=== PATIENT | female | born 1950 | race Caucasian/White ===

== ENCOUNTER → 2017-02-12 | Outpatient (CLI) | payer MEDICARE, OTHER ==
--- NOTE | 2017-02-12 12:56 | RADIOLOGY REPORT (SQ) ---
EXAM DESCRIPTION: MRI LT UPPER JOINT WITHOUT COMPLETED DATE/TIME: 02/12/2017 12:12 pm REASON FOR STUDY: STRAIN OF MUSCLE(S)/TENDON(S) OF THE ROTATOR CUFF OF LEFT SHOULDER (S46.012 S46.01 2D STRAIN OF MUSC/TEND THE ROTATOR CUFF OF LEFT SHOULD COMPARISON: None. TECHNIQUE: Left shoulder images acquired and stored on PACS. Multiplanar imaging to include fat sens itive sequences such as T1, water sensitive sequences such as FST2/STIR, cartilage sensitive sequence s such as FSPD/gradient-echo sequences. LIMITATIONS: None. FINDINGS: BONE MARROW AND CORTEX: No worrisome bone lesions or marrow replacement. No occult fractur es. JOINT OR BURSAL EFFUSION: Glenohumeral joint effusion. No significant bursal fluid. GLENO-HUMERAL ARTICULATION: Intact. Central cartilage loss. ACROMION AND AC JOINT: Type 2. Moderate AC joint arthropathy. ROTATOR CUFF AND INTERVAL: Cuff musculature is symmetric. Increased signal articular surface suprasp inatus tendon, partial thickness. No rotator interval tear. No rotator interval thickening to suggest adhesive capsulitis. LABRUM AND BICEPS LABRAL COMPLEX: No labral tear identified. Distal biceps in normal position. REMAINDER OF LABRUM AND IGHL : No gross tear or paralabral cyst formation. Labral evaluation is less than optimal without joint distention. No thickening of IGHL to suggest adhesive capsulitis. PERIARTICULAR AND ADJACENT SOFT TISSUES: No masses or abnormal nodes. OTHER: No other significant finding. IMPRESSION: 1. Partial thickness articular surface tear of the supraspinatus. 2. AC joint arthropathy. 3. Glenohumeral joint effusion. TECHNICAL DOCUMENTATION: JOB ID: [id number] [employer]- All Rights Reserved
== END ==
LOC: RAD 11:14
PROVIDERS: ATTEND Family Medicine
DX: S46.012D Strain of muscle(s) and tendon(s) of the rotator cuff of left shoulder, subsequent encounter (principal); X58.XXXD Exposure to other specified factors, subsequent encounter

== ENCOUNTER → 2017-05-31 | Outpatient (CLI) | payer MEDICARE, OTHER ==
--- NOTE | 2017-06-02 17:56 | WOMENS IMAGING REPORT ---
EXAM DESCRIPTION: 3D SCREENING MAMMO BILAT COMPLETED DATE/TIME: 05/31/2017 9:33 am REASON FOR STUDY: SCREENING MAMMO Z12.31 ENCNTR SCREEN MAMMOGRAM FOR MALIGNANT NEOPLASM OF ELLIOT COMPARISON: 03/29/2015 outside films TECHNIQUE: Standard craniocaudal and mediolateral oblique views of each breast recorded using digita l acquisition and breast tomosynthesis. LIMITATIONS: None. FINDINGS: Findings present which are benign by mammographic criteria. No suspicious masses, calcifi cations or architectural distortion. Pertinent benign findings: Patient has had multiple bilateral breast surgeries including bilateral br east reduction and bilateral open breast biopsies. There are diffuse bilateral postsurgical changes. Right-sided nipple retraction. These findings are stable. Nodular appearance to the left retroare olar breast tissue is stable. Read with the assistance of CAD. .[facility] - R2 Cenova Version 1.3 .[facility] Imaging - R2 Cenova Version 1.3 .[facility] Imaging - R2 Cenova Version 2.4 .[facility] [place] - R2 Cenova Version 2.4 .[facility] - R2 Relocation Specialist Version 9.2 Benign mammographic findings may include one or more of the following: Smooth masses, popcorn/rim/co arse calcifications, asymmetries, post-procedure changes, and lesions with long-standing stability. IMPRESSION: BENIGN MAMMOGRAPHIC FINDINGS. BIRADS 2 BREAST DENSITY: b. There are scattered areas of fibroglandular density. BIRAD: 2 BENIGN FINDING(S) RECOMMENDATION: RECOMMENDATION: ROUTINE SCREENING Please continue yearly bilateral screening tomosynthesis in May 2018 COMMENT: The patient has been notified of the results by letter per SA requirements. Additional no tification policies are in place for contacting patient with suspicious or incomplete findings. Quality ID #[id number]: The [employer] recommends an annual screening mammogram for women aged 40 years or over. This facility utilizes a reminder system to ensure that all patients receive reminder letters, and/or direct phone calls for appointments. This includes reminders for routine scr eening mammograms, diagnostic mammograms, or other Breast Imaging Interventions when appropriate. Th is patient will be placed in the appropriate reminder system. The [employer] (ACR) has developed recommendations for screening MRI of the breast s in certain patient populations, to be used in conjunction with mammography. Breast MRI surveillanc e may be appropriate for women with more than 20% lifetime risk of developing breast cancer as deter mined by genetic testing, significant family history of the disease, or history of mantle radiation f or Hodgkins Disease. ACR Practice Guidelines 2008. DBT Technology DBT is a type of tomographic mammography. With conventional mammography, overlapping breast tissue ma y make lesions difficult to detect, even with good compression. DBT uses an x-ray tube that rotates a round the breast, taking images at different angles. These images are then combined to create thin sl ices of the breast that the radiologist can view as a 3D reconstruction. The Valderm unit can perform full-field digital mammograms (2D imaging); or DBT (3D imaging); or both, in a combination mode that quickly performs both the mammogram and the tomosynthesis scan while the breast is still compressed. PQRS 6045F: Fluoroscopic imaging is not utilized for breast tomosynthesis. TECHNICAL DOCUMENTATION: FINDING NUMBER: (1) ASSESSMENT: (1) JOB ID: [id number] [employer]- All Rights Reserved Reading location - IP/workstation name: [email or web address]
== END ==
LOC: WI 07:29
PROVIDERS: ATTEND Internal Medicine
DX: Z12.31 Encounter for screening mammogram for malignant neoplasm of breast (principal)
CPT/HCPCS: 77063; 77067

== ENCOUNTER 2017-06-15 08:07 | Outpatient (CLI) | payer MEDICARE, OTHER ==
[2017-06-15 08:52] VITALS: BP 124/52
[2017-06-15] MEDS: NORMAL SALINE 250 ML IV PRN ×2 (09:09→09:42)
[2017-06-15 09:21] LABS: ALANINE AMINOTRANSFERASE 32 U/L (9-52); ALBUMIN 4.1 g/dL (3.5-5.0); ALKALINE PHOSPHATASE 77 U/L (38-126); ANION GAP 10 (5-19); ASPARTATE AMINO TRANSFERASE 34 U/L (14-36); BILIRUBIN,DIRECT 0.3 mg/dL (0.0-0.4); BILIRUBIN,TOTAL 0.5 mg/dL (0.2-1.3); BLOOD UREA NITROGEN 18 mg/dL (7-20); CALCIUM 9.1 mg/dL (8.4-10.2); CARBON DIOXIDE 27 mmol/L (22-30); CHLORIDE 104 mmol/L (98-107); GLUCOSE 119 mg/dL (75-110); POTASSIUM 3.2 mmol/L (3.6-5.0); SODIUM 140.6 mmol/L (137-145); TOTAL PROTEIN 6.9 g/dL (6.3-8.2)
[2017-06-15] MEDS: POTASSIUM CHLORIDE 20 MEQ/50 ML RTU IV SCH ×4 (09:44→16:24)
[2017-06-15] MEDS ORDERED: DIPHENHYDRAMINE HCL 25 MG in NORMAL SALINE 50 ML IV PRN (10:29)
[2017-06-15] MEDS ORDERED: MAGNESIUM SULFATE 1 GM/D5W 100 ML IV SCH (10:30)
[2017-06-15] MEDS: MAGNESIUM SULFATE 1 GM/D5W 100 ML IV SCH ×2 (18:48→19:50)
== END 2017-06-15 20:09 | disposition home or self-care (01) ==
LOC: II 08:07 → 5TH 08:18 → II 20:09
PROVIDERS: ATTEND Internal Medicine
PROC: 3E043GC Introduction of Other Therapeutic Substance into Central Vein, Percutaneous Approach (ICD-10-PCS; principal; 2017-06-15)
DX: E87.6 Hypokalemia (principal)
CPT/HCPCS: 36415; 83735; 80053; 96367; J1200; J3475; J3480; 96365; 96366; 96375

== ENCOUNTER 2017-06-18 08:49 | Outpatient (CLI) | payer MEDICARE, OTHER ==
[~2017-06-18 08:49] MED LIST: NORMAL SALINE 250 ML IV PRN
[2017-06-18] MEDS: POTASSIUM CHLORIDE 20 MEQ/50 ML RTU IV SCH ×8 (10:18→22:26)
[2017-06-18] MEDS ORDERED: DIPHENHYDRAMINE HCL 50 MG/ML VIAL IV PRN (14:46)
[2017-06-18] MEDS ORDERED: MAGNESIUM SULFATE 1 GM/D5W 100 ML IV SCH (16:00)
[2017-06-18] MEDS ORDERED: MAGNESIUM SULFATE/D5W 1 GM/100 ML RTUPB IV ONE (22:21)
[2017-06-18 22:28] VITALS: BP 120/53
[2017-06-18] MEDS ORDERED: MAGNESIUM SULFATE 1 GM/D5W 100 ML IV ONE (22:45)
== END 2017-06-19 | disposition home or self-care (01) ==
LOC: II 08:49 → 5 08:51 → II 06-19
PROVIDERS: ATTEND Internal Medicine
PROC: 3E043GC Introduction of Other Therapeutic Substance into Central Vein, Percutaneous Approach (ICD-10-PCS; principal; 2017-06-18)
DX: E87.6 Hypokalemia (principal)
CPT/HCPCS: 96367; J1200; J3475; J3480; J7050; J1642; 96365; 96366; 96375

== ENCOUNTER 2017-06-22 08:15 | Outpatient (CLI) | payer MEDICARE, OTHER ==
[2017-06-22 09:00] VITALS: BP 137/64
[2017-06-22 09:30] LABS: ALANINE AMINOTRANSFERASE 33 U/L (9-52); ALBUMIN 4.1 g/dL (3.5-5.0); ALKALINE PHOSPHATASE 79 U/L (38-126); ANION GAP 13 (5-19); ASPARTATE AMINO TRANSFERASE 29 U/L (14-36); BILIRUBIN,DIRECT 0.3 mg/dL (0.0-0.4); BILIRUBIN,TOTAL 0.4 mg/dL (0.2-1.3); BLOOD UREA NITROGEN 17 mg/dL (7-20); CALCIUM 9.5 mg/dL (8.4-10.2); CARBON DIOXIDE 27 mmol/L (22-30); CHLORIDE 102 mmol/L (98-107); GLUCOSE 115 mg/dL (75-110); POTASSIUM 3.4 mmol/L (3.6-5.0); TOTAL PROTEIN 6.7 g/dL (6.3-8.2)
[2017-06-22] MEDS ORDERED: DIPHENHYDRAMINE HCL 50 MG in NORMAL SALINE 50 ML IV PRN (09:34)
[2017-06-22] MEDS ORDERED: MAGNESIUM SULFATE/D5W 0 GM/0 ML RTUPB IV ONE (09:36)
[2017-06-22] MEDS: POTASSIUM CHLORIDE 20 MEQ/50 ML RTU IV PRN ×4 (09:41→15:29)
[2017-06-22] MEDS ORDERED: DIPHENHYDRAMINE HCL 25 MG in NORMAL SALINE 50 ML IV PRN (09:47)
[2017-06-22] MEDS ORDERED: MAGNESIUM SULFATE 1 GM/D5W 100 ML IV SCH (10:30)
== END 2017-06-22 20:00 | disposition home or self-care (01) ==
LOC: II 08:15 → 5TH 08:25 → II 20:00
PROVIDERS: ATTEND Internal Medicine
PROC: 3E043GC Introduction of Other Therapeutic Substance into Central Vein, Percutaneous Approach (ICD-10-PCS; principal; 2017-06-22)
DX: E87.6 Hypokalemia (principal); C20 Malignant neoplasm of rectum; K91.2 Postsurgical malabsorption, not elsewhere classified
CPT/HCPCS: 36415; 83735; 80053; 96367; J1200; J3475; J3480; 96365; 96366; 96375

== ENCOUNTER 2017-06-25 08:26 | Outpatient (CLI) | payer MEDICARE, OTHER ==
[2017-06-25] MEDS ORDERED: NORMAL SALINE 250 ML IV PRN (08:27)
[2017-06-25] MEDS ORDERED: NORMAL SALINE IV PRN ×2 (08:32→10:48)
[2017-06-25] MEDS ORDERED: POTASSIUM CHLORIDE IV PRN ×2 (08:32→10:48)
[2017-06-25] MEDS ORDERED: CYANOCOBALAMIN (VITAMIN B-12) INJ 1000 MCG/1 ML VIAL IM PRN (09:00)
[2017-06-25 11:19] LABS: GLUCOSE 139 mg/dL (75-110)
[2017-06-25 11:29] LABS: ALANINE AMINOTRANSFERASE 33 U/L (9-52); ALBUMIN 4.2 g/dL (3.5-5.0); ALKALINE PHOSPHATASE 82 U/L (38-126); ANION GAP 14 (5-19); ASPARTATE AMINO TRANSFERASE 31 U/L (14-36); BILIRUBIN,DIRECT 0.1 mg/dL (0.0-0.4); BILIRUBIN,TOTAL 0.3 mg/dL (0.2-1.3); BLOOD UREA NITROGEN 18 mg/dL (7-20); CALCIUM 9.4 mg/dL (8.4-10.2); CARBON DIOXIDE 24 mmol/L (22-30); CHLORIDE 104 mmol/L (98-107); POTASSIUM 3.5 mmol/L (3.6-5.0); SODIUM 141.6 mmol/L (137-145); TOTAL PROTEIN 6.5 g/dL (6.3-8.2)
[2017-06-25] MEDS ORDERED: DIPHENHYDRAMINE HCL 25 MG in NORMAL SALINE 50 ML IV PRN (12:04)
[2017-06-25] MEDS: MAGNESIUM SULFATE 1 GM/D5W 100 ML IV SCH ×2 (14:47→16:36)
[2017-06-25 16:04] VITALS: BP 115/54
== END 2017-06-25 20:46 | disposition home or self-care (01) ==
LOC: II 08:26 → 4S 08:32 → II 20:46
PROVIDERS: ATTEND Internal Medicine
PROC: 3E043GC Introduction of Other Therapeutic Substance into Central Vein, Percutaneous Approach (ICD-10-PCS; principal; 2017-06-25)
PROC: 3E0 Administration, Physiological Systems and Anatomical Regions, Introduction (ICD-10-PCS; 2017-06-25)
DX: E87.6 Hypokalemia (principal); C20 Malignant neoplasm of rectum
CPT/HCPCS: 36415; 83735; 80053; 96367; J3420; J1200; J3475; J3480; J7030; 96365; 96366

== ENCOUNTER 2017-06-29 08:52 | Outpatient (CLI) | payer MEDICARE, OTHER ==
[~2017-06-29 08:52] MED LIST changes: +NORMAL SALINE IV PRN; +POTASSIUM CHLORIDE IV PRN
[2017-06-29] MEDS: POTASSI CL 40 MEQ/NS 1L 1,000 ML IV PRN ×2 (09:26→11:44)
[2017-06-29] MEDS ORDERED: DIPHENHYDRAMINE HCL IV PRN (14:00)
[2017-06-29] MEDS ORDERED: NORMAL SALINE IV PRN (14:00)
[2017-06-29] MEDS: MAGNESIUM SULFATE 1 GM/D5W 100 ML IV SCH ×2 (14:53→16:05)
[2017-06-29 16:34] VITALS: BP 119/56
== END 2017-06-29 18:00 | disposition home or self-care (01) ==
LOC: II 08:52 → 5 08:59 → II 18:00
PROVIDERS: ATTEND Internal Medicine
PROC: 3E043GC Introduction of Other Therapeutic Substance into Central Vein, Percutaneous Approach (ICD-10-PCS; principal; 2017-06-29)
DX: E87.6 Hypokalemia (principal)
CPT/HCPCS: J1200; J3475; J3480; 96365; 96366; 96367; J7030

== ENCOUNTER 2017-07-02 09:13 | Outpatient (CLI) | payer MEDICARE, OTHER ==
[~2017-07-02 09:13] MED LIST changes: -NORMAL SALINE IV PRN; -POTASSIUM CHLORIDE IV PRN
[2017-07-02] MEDS ORDERED: DIPHENHYDRAMINE HCL 50 MG/ML VIAL IV PRN (10:10)
[2017-07-02] MEDS: POTASSI CL 40 MEQ/NS 1L 1,000 ML IV PRN ×2 (10:13→12:29)
[2017-07-02 11:36] VITALS: BP 123/69
[2017-07-02] MEDS: MAGNESIUM SULFATE 1 GM/D5W 100 ML IV PRN ×2 (16:07→17:35)
== END 2017-07-02 19:46 | disposition home or self-care (01) ==
LOC: II 09:13 → 5 09:19 → II 19:46
PROVIDERS: ATTEND Internal Medicine
PROC: 3E043GC Introduction of Other Therapeutic Substance into Central Vein, Percutaneous Approach (ICD-10-PCS; principal; 2017-07-02)
DX: E87.6 Hypokalemia (principal)
CPT/HCPCS: J1200; J3475; J3480; 96365; 96366; 96367

== ENCOUNTER 2017-07-06 12:11 | Outpatient (CLI) | payer MEDICARE, OTHER ==
[2017-07-06] MEDS ORDERED: NORMAL SALINE 250 ML IV PRN (12:59)
[2017-07-06] MEDS: POTASSI CL 40 MEQ/NS 1L 1,000 ML IV PRN ×2 (13:21→16:18)
[2017-07-06] MEDS ORDERED: DIPHENHYDRAMINE HCL 25 MG in NORMAL SALINE 50 ML IV PRN (18:09)
[2017-07-06] MEDS: MAGNESIUM SULFATE 1 GM/D5W 100 ML IV SCH ×2 (19:32→20:40)
[2017-07-06 22:49] VITALS: BP 115/57
== END 2017-07-06 22:40 | disposition home or self-care (01) ==
LOC: II 12:11 → 4N 12:19 → II 22:40
PROVIDERS: ATTEND Internal Medicine
PROC: 3E033GC Introduction of Other Therapeutic Substance into Peripheral Vein, Percutaneous Approach (ICD-10-PCS; principal; 2017-07-06)
DX: E87.6 Hypokalemia (principal)
CPT/HCPCS: J1200; J3475; J3480; 96365; 96366; 96367

== ENCOUNTER 2017-07-09 09:23 | Outpatient (CLI) | payer MEDICARE, OTHER ==
[2017-07-09] MEDS ORDERED: DIPHENHYDRAMINE HCL 25 MG in NORMAL SALINE 50 ML INJ PRN (10:05)
[2017-07-09] MEDS: POTASSI CL 40 MEQ/NS 1L 1,000 ML IV SCH ×2 (10:27→12:34)
[2017-07-09] MEDS ORDERED: NORMAL SALINE 250 ML IV PRN (11:00)
[2017-07-09] MEDS: MAGNESIUM SULFATE 1 GM/D5W 100 ML IV SCH ×2 (15:46→16:51)
== END 2017-07-09 18:30 | disposition home or self-care (01) ==
LOC: II 09:23 → 3N 09:29 → II 18:30
PROVIDERS: ATTEND Internal Medicine
PROC: 3E043GC Introduction of Other Therapeutic Substance into Central Vein, Percutaneous Approach (ICD-10-PCS; principal; 2017-07-09)
DX: E87.6 Hypokalemia (principal)
CPT/HCPCS: J1200; J3475; J3480; 96365; 96366; 96367

== ENCOUNTER 2017-07-13 09:06 | Outpatient (CLI) | payer MEDICARE, OTHER ==
[2017-07-13] MEDS: POTASSI CL 40 MEQ/NS 1L 1,000 ML IV PRN ×2 (10:00→12:03)
[2017-07-13] MEDS ORDERED: DIPHENHYDRAMINE HCL 25 MG in NORMAL SALINE 50 ML IV PRN (11:41)
[2017-07-13 12:42] VITALS: BP 125/55
[2017-07-13] MEDS: MAGNESIUM SULFATE 1 GM/D5W 100 ML IV SCH ×2 (15:27→16:30)
== END 2017-07-13 17:36 | disposition home or self-care (01) ==
LOC: II 09:06 → 3N 09:46 → II 17:36
PROVIDERS: ATTEND Internal Medicine
PROC: 3E043GC Introduction of Other Therapeutic Substance into Central Vein, Percutaneous Approach (ICD-10-PCS; principal; 2017-07-13)
DX: E87.6 Hypokalemia (principal)
CPT/HCPCS: 96365; 96366; 96367; J1200; J3475; J3480

== ENCOUNTER 2017-07-16 08:56 | Outpatient (CLI) | payer MEDICARE, OTHER ==
[2017-07-16 11:09] LABS: ALANINE AMINOTRANSFERASE 30 U/L (9-52); ALBUMIN 4.1 g/dL (3.5-5.0); ALKALINE PHOSPHATASE 76 U/L (38-126); ANION GAP 13 (5-19); ASPARTATE AMINO TRANSFERASE 29 U/L (14-36); BILIRUBIN,DIRECT 0.3 mg/dL (0.0-0.4); BILIRUBIN,TOTAL 0.3 mg/dL (0.2-1.3); BLOOD UREA NITROGEN 20 mg/dL (7-20); CALCIUM 9.4 mg/dL (8.4-10.2); CARBON DIOXIDE 26 mmol/L (22-30); CHLORIDE 104 mmol/L (98-107); GLUCOSE 138 mg/dL (75-110); POTASSIUM 3.6 mmol/L (3.6-5.0); SODIUM 142.8 mmol/L (137-145); TOTAL PROTEIN 6.7 g/dL (6.3-8.2)
[2017-07-16] MEDS: POTASSI CL 40 MEQ/NS 1L 1,000 ML IV PRN ×2 (11:38→14:18)
[2017-07-16] MEDS: NORMAL SALINE 250 ML IV PRN ×5 (11:48→16:30)
[2017-07-16] MEDS ORDERED: DIPHENHYDRAMINE HCL 25 MG in NORMAL SALINE 50 ML IV ONE (15:00)
[2017-07-16] MEDS: MAGNESIUM SULFATE 1 GM/D5W 100 ML IV SCH ×2 (16:49→17:57)
[2017-07-16 19:41] VITALS: BP 123/58
== END 2017-07-16 20:00 | disposition home or self-care (01) ==
LOC: II 08:56 → 4W 09:12 → 4N 17:01 → II 20:00
PROVIDERS: ATTEND Internal Medicine
PROC: 3E043GC Introduction of Other Therapeutic Substance into Central Vein, Percutaneous Approach (ICD-10-PCS; principal; 2017-07-16)
DX: E87.6 Hypokalemia (principal)
CPT/HCPCS: 36415; 83735; 80053; J1200; J3475; J7050; J3480; 96361; 96365; 96366; 96367

== ENCOUNTER 2017-07-20 09:00 | Outpatient (CLI) | payer MEDICARE, OTHER ==
[~2017-07-20 09:00] MED LIST changes: -NORMAL SALINE 250 ML IV PRN; +NS IV PRN; +POTASSI CL IV PRN
[2017-07-20] MEDS ORDERED: DIPHENHYDRAMINE HCL 25 MG in NORMAL SALINE 50 ML IV PRN (10:12)
[2017-07-20] MEDS: MAGNESIUM SULFATE 1 GM/D5W 100 ML IV SCH ×2 (16:30→17:56)
[2017-07-20 17:56] VITALS: BP 114/53
== END 2017-07-20 19:09 | disposition home or self-care (01) ==
LOC: II 09:00 → 3N 10:00 → II 19:09
PROVIDERS: ATTEND Internal Medicine
PROC: 3E043GC Introduction of Other Therapeutic Substance into Central Vein, Percutaneous Approach (ICD-10-PCS; principal; 2017-07-20)
DX: E87.6 Hypokalemia (principal)
CPT/HCPCS: J1200; J3475; J3480; 96365; 96366; 96367

== ENCOUNTER 2017-07-23 09:47 | Outpatient (CLI) | payer MEDICARE, OTHER ==
[2017-07-23] MEDS ORDERED: DIPHENHYDRAMINE HCL 25 MG in NORMAL SALINE 50 ML IV ONE (17:30)
[2017-07-23] MEDS: MAGNESIUM SULFATE 1 GM/D5W 100 ML IV SCH ×2 (18:18→19:32)
== END 2017-07-23 21:15 | disposition home or self-care (01) ==
LOC: II 09:47 → 5TH 09:50 → 3S 10:07 → II 21:15
PROVIDERS: ATTEND Internal Medicine
PROC: 3E043GC Introduction of Other Therapeutic Substance into Central Vein, Percutaneous Approach (ICD-10-PCS; principal; 2017-07-23)
DX: E87.6 Hypokalemia (principal)
CPT/HCPCS: J1200; J3475; J3480; 96365; 96366; 96367

== ENCOUNTER 2017-07-27 09:16 | Outpatient (CLI) | payer MEDICARE, OTHER ==
[2017-07-27] MEDS: POTASSI CL 40 MEQ/NS 1L 1,000 ML IV PRN ×2 (09:51→11:56)
[2017-07-27] MEDS ORDERED: DIPHENHYDRAMINE HCL 25 MG in NORMAL SALINE 50 ML IV ONE (12:00)
[2017-07-27] MEDS: MAGNESIUM SULFATE 1 GM/D5W 100 ML IV SCH ×2 (15:13→16:38)
[2017-07-27 18:05] VITALS: BP 114/75
== END 2017-07-27 17:56 | disposition home or self-care (01) ==
LOC: II 09:16 → 3S 09:21 → II 17:56
PROVIDERS: ATTEND Internal Medicine
PROC: 3E043GC Introduction of Other Therapeutic Substance into Central Vein, Percutaneous Approach (ICD-10-PCS; principal; 2017-07-27)
DX: E87.6 Hypokalemia (principal)
CPT/HCPCS: J1200; J3475; J3480; 96365; 96366; 96367

== ENCOUNTER 2017-07-30 09:20 | Outpatient (CLI) | payer MEDICARE, OTHER ==
[2017-07-30] MEDS: POTASSI CL 40 MEQ/NS 1L 1,000 ML IV PRN ×2 (11:21→13:28)
[2017-07-30] MEDS ORDERED: DIPHENHYDRAMINE HCL 25 MG in NORMAL SALINE 50 ML INJ PRN (11:26)
[2017-07-30 14:01] VITALS: BP 99/65
[2017-07-30] MEDS: MAGNESIUM SULFATE 1 GM/D5W 100 ML IV SCH ×2 (16:29→17:34)
[2017-07-30] MEDS ORDERED: MAGNESIUM SULFATE/D5W 1 GM/100 ML RTUPB IV ONE (17:36)
== END 2017-07-30 19:01 | disposition home or self-care (01) ==
LOC: II 09:20 → 5 09:22 → II 19:01
PROVIDERS: ATTEND Internal Medicine
PROC: 3E033GC Introduction of Other Therapeutic Substance into Peripheral Vein, Percutaneous Approach (ICD-10-PCS; principal; 2017-07-30)
DX: E87.6 Hypokalemia (principal)
CPT/HCPCS: 96365; 96366; 96367; J1200; J3475; J3480; 96523

== ENCOUNTER 2017-08-02 09:27 | Outpatient (CLI) | payer MEDICARE, OTHER ==
[2017-08-02] MEDS: POTASSI CL 40 MEQ/NS 1L 1,000 ML IV PRN ×2 (10:35→12:44)
[2017-08-02] MEDS ORDERED: DIPHENHYDRAMINE HCL 25 MG in NORMAL SALINE 50 ML IV ONE (14:00)
[2017-08-02] MEDS: MAGNESIUM SULFATE 1 GM/D5W 100 ML IV SCH ×2 (16:19→17:28)
== END 2017-08-02 19:30 | disposition home or self-care (01) ==
LOC: II 09:27 → 3S 09:28 → II 19:30
PROVIDERS: ATTEND Internal Medicine
PROC: 3E033GC Introduction of Other Therapeutic Substance into Peripheral Vein, Percutaneous Approach (ICD-10-PCS; principal; 2017-08-02)
DX: E87.6 Hypokalemia (principal)
CPT/HCPCS: 96361; 96365; 96367; J1200; J1642; J3475; J3480

== ENCOUNTER 2017-08-03 05:20 | Day surgery (SDC) | payer MEDICARE, OTHER ==
[2017-07-22 11:44] LABS: HEMATOCRIT 38.6 % (36.0-47.0); HEMOGLOBIN 13.1 g/dL (12.0-15.5); MEAN CORPUSCULAR HEMOGLOBIN 31.3 pg (27.0-33.4); MEAN CORPUSCULAR HGB CONC 33.9 g/dL (32.0-36.0); MEAN CORPUSCULAR VOLUME 92 fl (80-97); PLATELET COUNT 147 10^3/uL (150-450); RED BLOOD COUNT 4.18 10^6/uL (3.72-5.28); RED CELL DISTRIBUTION WIDTH 12.9 % (11.5-14.0); WHITE BLOOD COUNT 5.6 10^3/uL (4.0-10.5)
[2017-07-22 11:47] LABS: INTERNATIONAL RATION (INR) 0.93; PARTIAL THROMBOPLASTIN TIME 28.6 SEC (23.5-35.8); PROTHROMBIN TIME 12.9 SEC (11.4-15.4)
[2017-07-22 12:08] LABS: ANION GAP 16 (5-19); BLOOD UREA NITROGEN 16 mg/dL (7-20); CALCIUM 9.6 mg/dL (8.4-10.2); CARBON DIOXIDE 25 mmol/L (22-30); CHLORIDE 104 mmol/L (98-107); GLUCOSE 104 mg/dL (75-110); POTASSIUM 3.7 mmol/L (3.6-5.0); SODIUM 145.3 mmol/L (137-145)
--- NOTE | 2017-07-22 13:23 | EKG REPORT ---
SEVERITY:- NORMAL ECG - SINUS RHYTHM : Confirmed by: Jasper York MD 22-Jul-2017 13:22:07
[~2017-08-03 05:20] MED LIST changes: +CEFAZOLIN 1 GM/D5W RTU 1 GM/50 ML RTUPB IV PRN; +LACTATED RINGERS 1000 ML IV PRN; +LIDOCAINE 0.5% INJ-PF (5 MG/ML) 50 ML SDV SUBCUT PRN; -NS IV PRN; -POTASSI CL IV PRN
[2017-08-03] MEDS ORDERED: POVIDONE-IODINE 5% OPH PREP SOLN 30 ML ONE (05:38)
[2017-08-03] MEDS ORDERED: LIDOCAINE 1%/EPINEPHRINE INJ 20 ML VIAL ONE (05:38)
[2017-08-03] MEDS ORDERED: SODIUM BICARBONATE 8.4% INJ 50 MEQ/50 ML DISP.SYRIN ONE (05:38)
[2017-08-03 06:18] LABS: POTASSIUM 3.9 mmol/L (3.6-5.0)
[2017-08-03] MEDS ORDERED: KETAMINE HCL INJ 500 MG/10 ML VIAL ONE (07:14)
[2017-08-03] MEDS ORDERED: PROPOFOL INJ 200 MG/20 ML VIAL IV ONE (07:15)
[2017-08-03] MEDS ORDERED: MIDAZOLAM 2 MG/2 ML INJ ONE (07:15)
[2017-08-03] MEDS ORDERED: SCOPOLAMINE HYDROBROMIDE 1.5 MG PATCH.TD72 ONE (07:28)
[2017-08-03] MEDS ORDERED: FENTANYL CITRATE INJ/PF 100 MCG/2 ML AMPUL IV PRN ×3 (08:19)
[2017-08-03] MEDS ORDERED: PROMETHAZINE HCL INJ 25 MG/1 ML VIAL IV PRN ×2 (08:19)
[2017-08-03] MEDS ORDERED: DIPHENHYDRAMINE HCL 50 MG/ML VIAL IV PRN (08:19)
[2017-08-03] MEDS ORDERED: MEPERIDINE HCL/PF INJ 25 MG/1 ML DISP.SYRIN IV PRN (08:19)
--- NOTE | 2017-08-03 09:16 | Operative Report ---
Operative Report DATE OF SURGERY: 08/03/17 PREOPERATIVE DIAGNOSIS: Basal cell carcinoma of the left ala groove POSTOPERATIVE DIAGNOSIS: Same OPERATION: Excision of basal cell carcinoma from the left ala groove with frozen section margin control and reconstruction with a nasolabial fold advancement flap reconstruction SURGEON: KRISTYN HANNAH ANESTHESIA: LMAC TISSUE REMOVED OR ALTERED: Basal cell carcinoma COMPLICATIONS: None ESTIMATED BLOOD LOSS: Minimal PROCEDURE: Patient seen and was marked prior to being brought into the operating room. Patient was brought into the operating room and placed on the operating room table in a supine position. Patient was then prepped with a Betadine scrub and Betadine solution and draped in a sterile and aseptic manner. The area was then marked. 12 O'clock was marked towards the tip of the nose 3 O'clock was marked towards the medial canthus 6:00 was marked towards the cheek 9:00 was marked towards the nasal rim upper lip The area was then anesthetized with 1% lidocaine with epinephrine and bicarbonate for its anesthetic and hemostatic effects. The area was then excised and marked at 12:00. The specimen was sent for frozen section. The results came back that the deep and lateral margins were free. We had considered a primary closure but this would go against the natural relaxed skin tension lines. A primary closure would be too tight and would have increased chance of dehiscence. This will leave more of a scar so we decided to use a nasolabial fold advancement flap reconstruction flap reconstruction which would camouflage the scar better and take tension off of the closure so that would be less chances of complications. A skin graft had been considered but because of the depth of the defect it was felt that this would leave a much more prominent scar. The decision to use the nasolabial flap allowed us to maintain some of the alar groove and have a contour for the base of the nose and maintain the nasolabial fold by using this and keep an incision within the fold itself for better cosmesis. Then we went ahead and outlined the flap and anesthetized it. We then incised the flap and developed a flap maintaining the subdermal plexus. Then we undermined 360 to allow for plate like scarring and minimize trap door deformity. Throughout the case hemostasis was achieved with the bipolar. We then sutured the flap into its new position using 5-0 Vicryl for the subcutaneous and deep dermis. Skin was closed with a simple and horizontal mattress stitch using 5-0 Prolene with knots being tied on the outside. We then applied tincture benzoin and Steri-Strips followed by a light pressure dressing. Patient was then reversed from anesthesia and taken to the [facility] for recovery. The patient tolerated well. There were no complications. Lesion size was approximately 1.3 x 0.8 cm please see pathology for actual size. Portions of this note may be dictated using [employer] voice recognition software. Occasional variations and spelling and vocabulary could be possible and are unintentional. Additionally, there is a chance that some errors may not be caught or corrected. Please notify the author of any discrepancies noted or if any statements are unclear. Subjective: No complaints Objective: Vital signs stable afebrile No bleeding Dressing intact Assessment and plan: Doing well. Elevate the operative site. Resume medications. Take antibiotics for 1 day Follow-up Full instructions were given to the patient and family and they understand Portions of this note may be dictated using [employer] voice recognition software. Occasional variations and spelling and vocabulary could be possible and are unintentional. Additionally, there is a chance that some errors may not be caught or corrected. Please notify the offer of any discrepancies noted or if any statements are unclear.
--- NOTE | 2017-08-03 09:18 | Discharge Summary ---
Discharge Summary (SDC) - Discharge Final Diagnosis: Basal cell carcinoma of the left alar groove Date of Surgery: 08/03/17 Condition: Good Treatment or Instructions: Leave the top dressing on for 2 days, then removed. Antibiotics for 1 day, then discontinue. Elevate operative area to decrease swelling. Do not strain, or lift heavy objects. Call for excessive bleeding, increased temperature of 101, uncontrolled pain, or excessive nausea or vomiting. You may reach Dr. Quach through his office at [phone]. In the event of an emergency after hours, then contact Dr. Quach through [facility]. Return to the office for a postop check on . The time will be scheduled by the nursing staff of [facility] prior to discharge. Please give the patient a copy of their labs and EKG so they can bring this to their PMD. Thank you Portions of this note may be dictated using [employer] voice recognition software. Occasional variations and spelling and vocabulary could be possible and are unintentional. Additionally, there is a chance that some errors may not be caught or corrected. Please notify the offer of any discrepancies noted or if any statements are unclear. Referrals: SUDARSHAN WITT MD [Primary Care Provider] - Discharge Diet: As Tolerated Report the Following to Your Physician Immediately: Unusual Bleeding - Keep head elevated. No bending or straining. Remove any tape if you are developing a reaction.
[2017-08-03 11:11] VITALS: BP 135/68
== END 2017-08-03 10:45 | disposition home or self-care (01) ==
LOC: OROUT 05:20
PROVIDERS: ATTEND Plastic Surgery
DX: C44.311 Basal cell carcinoma of skin of nose (principal); J45.909 Unspecified asthma, uncomplicated; M19.90 Unspecified osteoarthritis, unspecified site; G43.909 Migraine, unspecified, not intractable, without status migrainosus; Z79.01 Long term (current) use of anticoagulants; Z88.5 Allergy status to narcotic agent; Z91.040 Latex allergy status; Z79.899 Other long term (current) drug therapy; Z79.51 Long term (current) use of inhaled steroids
CPT/HCPCS: 93005; 36415 ×2; 83735 ×2; 84132; 85027; 85610; 85730; 80048; 88305 ×2; 88331 ×2; 93010; 14060; J2250; J0690; J3490 ×4; J2704; 160

== ENCOUNTER 2017-08-06 09:10 | Outpatient (CLI) | payer MEDICARE, OTHER ==
[2017-08-06] MEDS ORDERED: DIPHENHYDRAMINE HCL 25 MG in NORMAL SALINE 50 ML IV PRN (10:02)
[2017-08-06] MEDS: POTASSI CL 40 MEQ/NS 1L 1,000 ML IV PRN ×2 (10:17→12:20)
[2017-08-06 12:55] VITALS: BP 108/50
[2017-08-06] MEDS: MAGNESIUM SULFATE 1 GM/D5W 100 ML IV PRN ×2 (16:06→17:25)
== END 2017-08-06 19:32 | disposition home or self-care (01) ==
LOC: II 09:10 → 4N 09:29 → II 19:32
PROVIDERS: ATTEND Internal Medicine
PROC: 3E043GC Introduction of Other Therapeutic Substance into Central Vein, Percutaneous Approach (ICD-10-PCS; principal; 2017-08-06)
DX: E87.6 Hypokalemia (principal)
CPT/HCPCS: 96365; 96366; 96367; J1200; J3475; J3480; 96523

== ENCOUNTER 2017-08-10 09:30 | Outpatient (CLI) | payer MEDICARE, OTHER ==
[~2017-08-10 09:30] MED LIST changes: -CEFAZOLIN 1 GM/D5W RTU 1 GM/50 ML RTUPB IV PRN; -LACTATED RINGERS 1000 ML IV PRN; -LIDOCAINE 0.5% INJ-PF (5 MG/ML) 50 ML SDV SUBCUT PRN; +NS IV PRN; +POTASSI CL IV PRN
[2017-08-10] MEDS: MAGNESIUM SULFATE 1 GM/D5W 100 ML IV SCH ×2 (15:37→16:55)
[2017-08-10 15:51] VITALS: BP 105/64
[2017-08-11] MEDS ORDERED: DIPHENHYDRAMINE HCL 25 MG in NORMAL SALINE 50 ML IV PRN (05:00)
== END 2017-08-10 18:38 | disposition home or self-care (01) ==
LOC: II 09:30 → 5 09:43 → 4S 09:57 → II 18:38
PROVIDERS: ATTEND Internal Medicine
PROC: 3E043GC Introduction of Other Therapeutic Substance into Central Vein, Percutaneous Approach (ICD-10-PCS; principal; 2017-08-10)
DX: E87.6 Hypokalemia (principal)
CPT/HCPCS: 96365; 96366; 96367; J1200; J3475; J3480

== ENCOUNTER 2017-08-25 08:06 | Outpatient (CLI) | payer MEDICARE, OTHER ==
[2017-08-25 08:25] VITALS: BP 118/55
[2017-08-25] MEDS: NORMAL SALINE 250 ML IV PRN ×2 (08:26→09:01)
[2017-08-25] MEDS: DIPHENHYDRAMINE HCL 50 MG/ML VIAL IV PRN ×2 (08:27→09:02)
[2017-08-25] MEDS: MAGNESIUM SULFATE 1 GM/D5W 100 ML IV SCH ×2 (09:03→10:04)
== END 2017-08-25 11:30 | disposition home or self-care (01) ==
LOC: II 08:06 → 5TH 08:14 → II 11:30
PROVIDERS: ATTEND Internal Medicine
PROC: 3E043GC Introduction of Other Therapeutic Substance into Central Vein, Percutaneous Approach (ICD-10-PCS; principal; 2017-08-25)
DX: E83.42 Hypomagnesemia (principal)
CPT/HCPCS: 96367; 96375; J1200; J3475; 96365; 96366

== ENCOUNTER 2017-09-10 12:59 | Outpatient (CLI) | payer MEDICARE, OTHER ==
[2017-09-10] MEDS ORDERED: DIPHENHYDRAMINE HCL 50 MG/ML VIAL ONE (13:23)
[2017-09-10] MEDS ORDERED: NORMAL SALINE 250 ML IV PRN (13:26)
[2017-09-10 13:30] VITALS: BP 118/57
[2017-09-10] MEDS: MAGNESIUM SULFATE 1 GM/D5W 100 ML IV SCH ×2 (13:34→14:48)
== END 2017-09-10 16:04 | disposition home or self-care (01) ==
LOC: II 12:59 → 5TH 13:03 → II 16:04
PROVIDERS: ATTEND Internal Medicine
PROC: 3E033GC Introduction of Other Therapeutic Substance into Peripheral Vein, Percutaneous Approach (ICD-10-PCS; principal; 2017-09-10)
DX: E83.42 Hypomagnesemia (principal)
CPT/HCPCS: 96365; 96366; 96372; 96375; J1200; J3475

== ENCOUNTER 2017-09-21 15:55 | Outpatient (CLI) | payer MEDICARE, OTHER ==
[2017-09-21] MEDS ORDERED: NORMAL SALINE 250 ML IV PRN (16:25)
[2017-09-21] MEDS ORDERED: DIPHENHYDRAMINE HCL 25 MG in NORMAL SALINE 50 ML IV PRN (16:27)
[2017-09-21] MEDS ORDERED: HEPARIN SOD (PORCINE) 100 UNIT/ML 1 ML VIAL IV PRN (16:31)
[2017-09-21] MEDS ORDERED: DIPHENHYDRAMINE HCL 50 MG/ML VIAL IV PRN (16:42)
[2017-09-21] MEDS: MAGNESIUM SULFATE 1 GM/D5W 100 ML IV SCH ×2 (18:02→19:05)
[2017-09-21 22:44] VITALS: BP 108/50
== END 2017-09-21 20:10 | disposition home or self-care (01) ==
LOC: II 15:55 → 2S 16:05 → II 20:10
PROVIDERS: ATTEND Internal Medicine
PROC: 3E033GC Introduction of Other Therapeutic Substance into Peripheral Vein, Percutaneous Approach (ICD-10-PCS; principal; 2017-09-21)
DX: E83.42 Hypomagnesemia (principal)
CPT/HCPCS: J1200; J3475; 96365; 96367; 96375

== ENCOUNTER 2017-10-08 13:29 | Outpatient (CLI) | payer MEDICARE, OTHER ==
[2017-10-08] MEDS ORDERED: DIPHENHYDRAMINE HCL 50 MG/ML VIAL INJ PRN (13:48)
[2017-10-08] MEDS ORDERED: NORMAL SALINE 250 ML IV PRN (13:49)
[2017-10-08] MEDS: MAGNESIUM SULFATE/D5W 1 GM/100 ML RTUPB IV PRN ×2 (14:42→15:14)
[2017-10-08 15:28] VITALS: BP 120/62
== END 2017-10-08 16:41 | disposition home or self-care (01) ==
LOC: II 13:29 → 5TH 14:10 → II 16:41
PROVIDERS: ATTEND Internal Medicine
PROC: 3E043GC Introduction of Other Therapeutic Substance into Central Vein, Percutaneous Approach (ICD-10-PCS; principal; 2017-10-08)
DX: E83.42 Hypomagnesemia (principal)
CPT/HCPCS: 96365; 96366; 96367; 96375; J1200; J3475

== ENCOUNTER 2017-10-12 12:27 | Outpatient (CLI) | payer MEDICARE, OTHER ==
[~2017-10-12 12:27] MED LIST changes: +DIPHENHYDRAMINE HCL 50 MG/ML VIAL IV PRN; +NORMAL SALINE 250 ML IV PRN; -NS IV PRN; -POTASSI CL IV PRN
[2017-10-12] MEDS ORDERED: MAGNESIUM SULFATE 1 GM/D5W 100 ML IV SCH (13:00)
[2017-10-12 13:21] VITALS: BP 119/42
== END 2017-10-12 15:53 | disposition home or self-care (01) ==
LOC: II 12:27 → 5TH 12:53 → II 15:53
PROVIDERS: ATTEND Internal Medicine
PROC: 3E043GC Introduction of Other Therapeutic Substance into Central Vein, Percutaneous Approach (ICD-10-PCS; principal; 2017-10-12)
DX: E83.42 Hypomagnesemia (principal)
CPT/HCPCS: 96367; 96372; 96374; J1200; J3475; 96365; 96366; 96375

== ENCOUNTER 2017-11-16 13:48 | Outpatient (CLI) | payer MEDICARE, OTHER ==
[2017-11-16 14:23] VITALS: BP 103/56
[2017-11-16] MEDS ORDERED: DIPHENHYDRAMINE HCL 50 MG/ML VIAL IV PRN (14:28)
[2017-11-16] MEDS ORDERED: DIPHENHYDRAMINE HCL 50 MG/ML VIAL ONE (14:28)
[2017-11-16] MEDS ORDERED: MAGNESIUM SULFATE/D5W 1 GM/100 ML RTUPB IV ONE (15:00)
[2017-11-16] MEDS: MAGNESIUM SULFATE 1 GM/D5W 100 ML IV SCH ×2 (15:09→16:06)
== END 2017-11-16 17:01 | disposition home or self-care (01) ==
LOC: II 13:48 → 5TH 13:58 → II 17:01
PROVIDERS: ATTEND Internal Medicine
PROC: 3E043GC Introduction of Other Therapeutic Substance into Central Vein, Percutaneous Approach (ICD-10-PCS; principal; 2017-11-16)
DX: E83.42 Hypomagnesemia (principal)
CPT/HCPCS: 96367; 96375; J1200; J3475; 96365; 96366

== ENCOUNTER 2017-11-28 12:04 | Emergency (ER) | payer MEDICARE ==
[2017-11-28 13:14] LABS: ABSOLUTE EOSINOPHILS # (AUTO) 0.1 10^3/uL (0.0-0.6); ABSOLUTE LYMPHOCYTES (AUTO) 1.2 10^3/uL (0.5-4.7); ABSOLUTE MONOCYTES (AUTO) 0.5 10^3/uL (0.1-1.4); ABSOLUTE NEUT (AUTO) 5.2 10^3/uL (1.7-8.2); BASOPHILS % (AUTO) 0.6 % (0-2); EOSINOPHILS % (AUTO) 1.1 % (0-6); HEMATOCRIT 36.7 % (36.0-47.0); HEMOGLOBIN 12.9 g/dL (12.0-15.5); MEAN CORPUSCULAR HGB CONC 35.1 g/dL (32.0-36.0); MEAN CORPUSCULAR VOLUME 88 fl (80-97); PLATELET COUNT 154 10^3/uL (150-450); RED BLOOD COUNT 4.15 10^6/uL (3.72-5.28); RED CELL DISTRIBUTION WIDTH 13.5 % (11.5-14.0); SEGMENTED NEUTROPHILS % (AUTO) 74.3 % (42-78); TOTAL CELLS COUNTED % (AUTO) 100 %
[2017-11-28 13:30] LABS: ANION GAP 11 (5-19); BLOOD UREA NITROGEN 15 mg/dL (7-20); CALCIUM 9.4 mg/dL (8.4-10.2); CARBON DIOXIDE 27 mmol/L (22-30); CHLORIDE 102 mmol/L (98-107); GLUCOSE 108 mg/dL (75-110); SODIUM 140.2 mmol/L (137-145)
[2017-11-28] MEDS ORDERED: POTASSIUM CHLORIDE 20 MEQ/15 ML UDCUP PO ONE (13:49)
[2017-11-28] MEDS ORDERED: MAGNESIUM SULFATE/D5W 1 GM/100 ML RTUPB IV ONE ×2 (13:50)
[2017-11-28] MEDS ORDERED: DIPHENHYDRAMINE HCL 50 MG/ML VIAL IV ONE (14:57)
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
[2017-11-28 15:50] VITALS: BP 115/75
== END 2017-11-28 15:48 | disposition left against medical advice (07) ==
LOC: ER 12:04
DX: E83.42 Hypomagnesemia (principal); E87.6 Hypokalemia
CPT/HCPCS: 99283; 36415; 83735; 85025; 80048; A9270

== ENCOUNTER 2017-11-29 05:24 | Emergency (ER) | payer MEDICARE, OTHER ==
[2017-11-29] MEDS ORDERED: DIPHENHYDRAMINE HCL 50 MG/ML VIAL IV ONE (06:38)
[2017-11-29] MEDS: POTASSI CL 20 MEQ/50 ML RIDER 20 MEQ/50 ML RTUPB IV SCH ×4 (08:55→13:27)
[2017-11-29 09:31] LABS: ALANINE AMINOTRANSFERASE 29 U/L (9-52); ALBUMIN 3.9 g/dL (3.5-5.0); ALKALINE PHOSPHATASE 87 U/L (38-126); ANION GAP 10 (5-19); ASPARTATE AMINO TRANSFERASE 30 U/L (14-36); BILIRUBIN,DIRECT 0.5 mg/dL (0.0-0.4); BILIRUBIN,TOTAL 0.6 mg/dL (0.2-1.3); BLOOD UREA NITROGEN 16 mg/dL (7-20); CALCIUM 9.4 mg/dL (8.4-10.2); CARBON DIOXIDE 28 mmol/L (22-30); CHLORIDE 101 mmol/L (98-107); GLUCOSE 113 mg/dL (75-110); SODIUM 139.2 mmol/L (137-145); TOTAL PROTEIN 6.8 g/dL (6.3-8.2)
[2017-11-29 09:36] LABS: POTASSIUM 2.8 mmol/L (3.6-5.0)
[2017-11-29] MEDS ORDERED: MAGNESIUM SULFATE/D5W 1 GM/100 ML RTUPB IV ONE ×2 (10:35→15:30)
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
[2017-11-29 11:20] LABS: ABSOLUTE EOSINOPHILS # (AUTO) 0.1 10^3/uL (0.0-0.6); ABSOLUTE LYMPHOCYTES (AUTO) 1.3 10^3/uL (0.5-4.7); ABSOLUTE MONOCYTES (AUTO) 0.4 10^3/uL (0.1-1.4); ABSOLUTE NEUT (AUTO) 4.2 10^3/uL (1.7-8.2); BASOPHILS % (AUTO) 0.7 % (0-2); EOSINOPHILS % (AUTO) 1.9 % (0-6); HEMATOCRIT 35.9 % (36.0-47.0); HEMOGLOBIN 12.4 g/dL (12.0-15.5); LYMPHOCYTES % (AUTO) 21.4 % (13-45); MEAN CORPUSCULAR HEMOGLOBIN 30.6 pg (27.0-33.4); MEAN CORPUSCULAR HGB CONC 34.4 g/dL (32.0-36.0); MEAN CORPUSCULAR VOLUME 89 fl (80-97); MONOCYTES % (AUTO) 6.5 % (3-13); PLATELET COUNT 126 10^3/uL (150-450); RED BLOOD COUNT 4.05 10^6/uL (3.72-5.28); RED CELL DISTRIBUTION WIDTH 13.8 % (11.5-14.0); SEGMENTED NEUTROPHILS % (AUTO) 69.5 % (42-78); TOTAL CELLS COUNTED % (AUTO) 100 %
[2017-11-29 16:36] VITALS: BP 128/74
--- NOTE | 2017-11-30 15:21 | EKG REPORT ---
SEVERITY:- NORMAL ECG - SINUS RHYTHM : Confirmed by: Tamara Harmon MD 30-Nov-2017 15:21:25
== END 2017-11-29 16:37 | disposition home or self-care (01) ==
LOC: ER 05:24
DX: E87.6 Hypokalemia (principal); E83.42 Hypomagnesemia; Z88.6 Allergy status to analgesic agent; Z88.2 Allergy status to sulfonamides; Z91.040 Latex allergy status
CPT/HCPCS: 93005; 36591; 99284; 96365; 96366; 96367; 36415; 83735; 85025; 80053; 93010; J3475; J3480

== ENCOUNTER 2017-12-07 13:45 | Outpatient (CLI) | payer MEDICARE, OTHER ==
[2017-12-07] MEDS ORDERED: NORMAL SALINE 250 ML IV PRN (13:48)
[2017-12-07] MEDS ORDERED: DIPHENHYDRAMINE HCL 50 MG/ML VIAL IV PRN (13:49)
[2017-12-07 14:15] VITALS: BP 122/68
[2017-12-07] MEDS: MAGNESIUM SULFATE 1 GM/D5W 100 ML IV SCH ×2 (14:35→15:41)
== END 2017-12-07 16:52 | disposition home or self-care (01) ==
LOC: II 13:45 → 5TH 13:54 → II 16:52
PROVIDERS: ATTEND Internal Medicine
PROC: 3E043GC Introduction of Other Therapeutic Substance into Central Vein, Percutaneous Approach (ICD-10-PCS; principal; 2017-12-07)
DX: E83.42 Hypomagnesemia (principal)
CPT/HCPCS: 96367; 96375; J1200; J3475; 96365; 96366

== ENCOUNTER 2017-12-15 08:26 | Outpatient (CLI) | payer MEDICARE, OTHER ==
[~2017-12-15 08:26] MED LIST changes: +MAGNESIUM SULFATE 4 GM/D5W 100 ML IV PRN
[2017-12-15 09:10] VITALS: BP 126/55
== END 2017-12-15 13:45 | disposition home or self-care (01) ==
LOC: II 08:26 → 5TH 08:29 → II 13:45
PROVIDERS: ATTEND Internal Medicine
PROC: 3E043GC Introduction of Other Therapeutic Substance into Central Vein, Percutaneous Approach (ICD-10-PCS; principal; 2017-12-15)
DX: E83.42 Hypomagnesemia (principal)
CPT/HCPCS: 96367; J3475; J1200; 96365; 96366; 96375

== ENCOUNTER 2017-12-16 05:22 | Day surgery (SDC) | payer MEDICARE, OTHER ==
[2017-12-08 09:15] LABS: HEMATOCRIT 36.9 % (36.0-47.0); HEMOGLOBIN 12.6 g/dL (12.0-15.5); MEAN CORPUSCULAR HEMOGLOBIN 30.8 pg (27.0-33.4); MEAN CORPUSCULAR HGB CONC 34.2 g/dL (32.0-36.0); MEAN CORPUSCULAR VOLUME 90 fl (80-97); RED CELL DISTRIBUTION WIDTH 13.8 % (11.5-14.0)
[2017-12-08 09:38] LABS: PLATELET COUNT 137 10^3/uL (150-450)
[~2017-12-16 05:22] MED LIST changes: +ACETAMINOPHEN 325 MG TABLET PO PRN; +CEFAZOLIN 1 GM/D5W RTU 1 GM/50 ML RTUPB IV PRN; -DIPHENHYDRAMINE HCL 50 MG/ML VIAL IV PRN; +LACTATED RINGERS 1000 ML IV PRN; +LIDOCAINE 0.5% INJ-PF (5 MG/ML) 50 ML SDV SUBCUT PRN; -MAGNESIUM SULFATE 4 GM/D5W 100 ML IV PRN; -NORMAL SALINE 250 ML IV PRN
[2017-12-16] MEDS ORDERED: CEFAZOLIN 1 GM/D5W RTU 1 GM/50 ML RTUPB IV ONE (05:54)
[2017-12-16] MEDS ORDERED: MIDAZOLAM 2 MG/2 ML INJ ONE (06:43)
[2017-12-16] MEDS ORDERED: HYDROMORPHONE HCL INJ/PF 2 MG/ML AMPULE ONE (06:43)
[2017-12-16] MEDS ORDERED: FENTANYL CITRATE INJ/PF 100 MCG/2 ML AMPUL ONE (06:43)
[2017-12-16] MEDS ORDERED: PROPOFOL INJ 200 MG/20 ML VIAL IV ONE (06:44)
[2017-12-16] MEDS ORDERED: ACETAMINOPHEN 0 MG/0 ML RTUPB IV ONE (06:44)
[2017-12-16] MEDS ORDERED: EPHEDRINE SULFATE INJ 50 MG/1 ML AMPULE ONE (06:45)
[2017-12-16] MEDS ORDERED: ALBUTEROL SULFATE 0.083% NEB 2.5 MG/3 ML AMPUL NEB ONE (07:07)
[2017-12-16 07:23] LABS: HEMATOCRIT 35.5 % (36.0-47.0); HEMOGLOBIN 12.2 g/dL (12.0-15.5); MEAN CORPUSCULAR HEMOGLOBIN 30.2 pg (27.0-33.4); MEAN CORPUSCULAR HGB CONC 34.3 g/dL (32.0-36.0); MEAN CORPUSCULAR VOLUME 88 fl (80-97); PLATELET COUNT 149 10^3/uL (150-450); RED BLOOD COUNT 4.04 10^6/uL (3.72-5.28); RED CELL DISTRIBUTION WIDTH 13.5 % (11.5-14.0); WHITE BLOOD COUNT 5.5 10^3/uL (4.0-10.5)
[2017-12-16 07:30] LABS: ANION GAP 10 (5-19); BLOOD UREA NITROGEN 11 mg/dL (7-20); CALCIUM 8.9 mg/dL (8.4-10.2); CARBON DIOXIDE 26 mmol/L (22-30); CHLORIDE 104 mmol/L (98-107); GLUCOSE 116 mg/dL (75-110); POTASSIUM 3.7 mmol/L (3.6-5.0); SODIUM 139.8 mmol/L (137-145)
[2017-12-16] MEDS ORDERED: FENTANYL CITRATE INJ/PF 100 MCG/2 ML AMPUL IV PRN ×3 (08:23)
[2017-12-16] MEDS ORDERED: PROMETHAZINE HCL INJ 25 MG/1 ML VIAL IV PRN (08:23)
[2017-12-16] MEDS ORDERED: DIPHENHYDRAMINE HCL 50 MG/ML VIAL IV PRN (08:23)
--- NOTE | 2017-12-16 09:04 | Discharge Summary ---
Discharge Summary (SDC) - Discharge Final Diagnosis: Ventral incisional hernia. Date of Surgery: 12/16/17 Discharge Date: 12/16/17 Condition: Stable Treatment or Instructions: Discharge home. Diet as tolerated. Activity: No lifting greater than 10 pounds x 6 weeks. Lillian 10/325 mg p.o. every 6 hours as needed for pain. Okay to shower on Wednesday. No tub baths or swimming times 2 weeks. Follow-up with me in 7-10 days. Referrals: MICHAEL MARTE PA [Primary Care Provider] - Discharge Diet: As Tolerated Respiratory Treatments at Home: Deep Breathing/Coughing, Incentive Spirometer Discharge Activity: No Lifting Over 10 Pounds Home Care Assistance: None Needed Report the Following to Your Physician Immediately: Shortness of Breath, Nausea , Vomiting, Increase in Pain, Fever over 101 Degrees, Unusual Bleeding, Redness , Swelling, Warmth, Increased Soreness
[2017-12-16] MEDS: FENTANYL CITRATE INJ/PF 100 MCG/2 ML AMPUL ONE ×2 (09:06→09:11)
[2017-12-16] MEDS ORDERED: HYDROCODONE/ACETAMINOPHEN 10-325 MG TABLET PO PRN (09:08)
--- NOTE | 2017-12-16 09:10 | Operative Report ---
Nonrecallable Operative Report DATE OF SURGERY: 12/16/17 PREOPERATIVE DIAGNOSIS: Ventral incisional hernia POSTOPERATIVE DIAGNOSIS: Incarcerated ventral incisional hernia. OPERATION: Open ventral incisional hernia repair with mesh. SURGEON: JOHN PAUL HERNANDEZ ANESTHESIA: GA TISSUE REMOVED OR ALTERED: Hernia sac COMPLICATIONS: None apparent ESTIMATED BLOOD LOSS: Minimal PROCEDURE: Drains/implants: 6.[address] hernia mesh. Procedure in detail: After informed consent was obtained, the patient was brought to the operating room and laid in the supine position. The area of the abdomen was prepped and draped in a normal sterile fashion. A vertical midline incision was created over the area of the hernia. Dissection was carried through the subcutaneous tissue using blunt dissection and Bovie electrocautery. The hernia sac was identified. There was a large amount of preperitoneal fat protruding through the small fascial defect. The hernia sac was cleared away from the fascia and divided. A preperitoneal dissection was then undertaken bluntly. The defect was approximately 1.5 cm in total diameter. A [address] hernia mesh was chosen to adequately cover the defect. It was placed into the preperitoneal space and sutured to the anterior abdominal wall using 0 Prolene trans-fascial mattress sutures. The hernia defect was then closed using 0 Prolene suture in [id number] fashion. Subcutaneous tissue was closed with 4-0 Vicryl suture. The skin was closed using 4-0 Vicryl Rapide suture in subcuticular fashion. Dressings were placed, and the procedure was concluded. All sponge, instrument, and needle counts were correct x2. Condition: Stable.
[2017-12-16] MEDS ORDERED: SUCCINYLCHOLINE CHLORIDE INJ 200 MG/10 ML VIAL ONE (09:28)
[2017-12-16] MEDS ORDERED: ONDANSETRON HCL INJ/PF 4 MG/2 ML SDV ONE (09:28)
[2017-12-16] MEDS ORDERED: DEXAMETHASONE SOD PHOSPHATE INJ 4 MG/1 ML VIAL ONE (09:28)
[2017-12-16] MEDS ORDERED: PROMETHAZINE HCL INJ 25 MG/1 ML VIAL ONE (09:32)
[2017-12-16] MEDS ORDERED: HYDROCODONE/ACETAMINOPHEN 5-325 MG TABLET ONE (10:01)
[2017-12-16] MEDS ORDERED: BUPIVACAINE HCL 0.5 % INJ/PF 30 ML SDV ONE (10:40)
[2017-12-16 13:00] VITALS: BP 142/75
== END 2017-12-16 12:30 | disposition home or self-care (01) ==
LOC: OROUT 05:22
PROVIDERS: ATTEND Surgery
DX: K43.0 Incisional hernia with obstruction, without gangrene (principal); J45.909 Unspecified asthma, uncomplicated; K21.9 Gastro-esophageal reflux disease without esophagitis; M19.90 Unspecified osteoarthritis, unspecified site; Z88.5 Allergy status to narcotic agent; Z88.8 Allergy status to other drugs, medicaments and biological substances; Z85.048 Personal history of other malignant neoplasm of rectum, rectosigmoid junction, and anus; Z93.3 Colostomy status; Z85.828 Personal history of other malignant neoplasm of skin; Z79.51 Long term (current) use of inhaled steroids; Z79.899 Other long term (current) drug therapy
CPT/HCPCS: 36415 ×2; 83735; 85027 ×2; 80048; 49561; 49568; J2250; J3490; J0690; J1100; J3010; J2550; J0330; J2405; J2704; A9270 ×2; 752; J0131; J1170

== ENCOUNTER 2017-12-22 08:41 | Outpatient (CLI) | payer MEDICARE, OTHER ==
[2017-12-22] MEDS ORDERED: NORMAL SALINE 250 ML IV PRN (08:52)
[2017-12-22] MEDS ORDERED: DIPHENHYDRAMINE HCL 50 MG/ML VIAL IV PRN (08:52)
[2017-12-22] MEDS ORDERED: MAGNESIUM SULFATE 4 GM/D5W 100 ML IV PRN (08:52)
[2017-12-22 09:19] VITALS: BP 140/62
== END 2017-12-22 14:09 | disposition home or self-care (01) ==
LOC: II 08:41 → 5TH 08:42 → II 14:09
PROVIDERS: ATTEND Internal Medicine
PROC: 3E043GC Introduction of Other Therapeutic Substance into Central Vein, Percutaneous Approach (ICD-10-PCS; principal; 2017-12-22)
DX: E83.42 Hypomagnesemia (principal)
CPT/HCPCS: 96365; 96366; 96375; J3475; J1200; 96374

== ENCOUNTER 2017-12-29 08:21 | Outpatient (CLI) | payer MEDICARE, OTHER ==
[~2017-12-29 08:21] MED LIST changes: -ACETAMINOPHEN 325 MG TABLET PO PRN; -CEFAZOLIN 1 GM/D5W RTU 1 GM/50 ML RTUPB IV PRN; +DIPHENHYDRAMINE HCL 50 MG/ML VIAL IV PRN; -LACTATED RINGERS 1000 ML IV PRN; -LIDOCAINE 0.5% INJ-PF (5 MG/ML) 50 ML SDV SUBCUT PRN; +MAGNESIUM SULFATE 4 GM/D5W 100 ML IV PRN; +NORMAL SALINE 250 ML IV PRN
[2017-12-29 09:06] VITALS: BP 126/109
== END 2017-12-29 14:20 | disposition home or self-care (01) ==
LOC: II 08:21 → 5TH 08:23 → II 14:20
PROVIDERS: ATTEND Internal Medicine
PROC: 3E043GC Introduction of Other Therapeutic Substance into Central Vein, Percutaneous Approach (ICD-10-PCS; principal; 2017-12-29)
DX: E83.42 Hypomagnesemia (principal)
CPT/HCPCS: 96367; J3475; J1200; 96365; 96366

== ENCOUNTER 2018-01-05 08:26 | Outpatient (CLI) | payer MEDICARE, OTHER ==
[2018-01-05 09:17] VITALS: BP 127/69
== END 2018-01-05 13:55 | disposition home or self-care (01) ==
LOC: II 08:26 → 5TH 09:01 → II 13:55
PROVIDERS: ATTEND Internal Medicine
PROC: 3E043GC Introduction of Other Therapeutic Substance into Central Vein, Percutaneous Approach (ICD-10-PCS; principal; 2018-01-05)
DX: E83.42 Hypomagnesemia (principal)
CPT/HCPCS: 96365; 96366; 96374; J3475; J1200; 96375

== ENCOUNTER 2018-01-12 08:38 | Outpatient (CLI) | payer MEDICARE, OTHER ==
[~2018-01-12 08:38] MED LIST changes: +DIPHENHYDRAMINE HCL 25 MG in NORMAL SALINE 50 ML IV PRN; -DIPHENHYDRAMINE HCL 50 MG/ML VIAL IV PRN
[2018-01-12 08:58] VITALS: BP 129/68
== END 2018-01-12 14:26 | disposition home or self-care (01) ==
LOC: II 08:38 → 5TH 08:42 → II 14:26
PROVIDERS: ATTEND Internal Medicine
PROC: 3E043GC Introduction of Other Therapeutic Substance into Central Vein, Percutaneous Approach (ICD-10-PCS; principal; 2018-01-12)
DX: E83.42 Hypomagnesemia (principal)
CPT/HCPCS: 96366; J3475; J1200; 96365; 96367

== ENCOUNTER 2018-01-19 08:35 | Outpatient (CLI) | payer MEDICARE, OTHER ==
[~2018-01-19 08:35] MED LIST changes: +DIPHENHYDRAMINE HCL 50 MG in NORMAL SALINE 50 ML IV PRN
[2018-01-19 08:55] VITALS: BP 119/64
== END 2018-01-19 14:42 | disposition home or self-care (01) ==
LOC: II 08:35 → 5TH 09:22 → II 14:42
PROVIDERS: ATTEND Internal Medicine
PROC: 3E043GC Introduction of Other Therapeutic Substance into Central Vein, Percutaneous Approach (ICD-10-PCS; principal; 2018-01-19)
DX: E83.42 Hypomagnesemia (principal)
CPT/HCPCS: 96365; 96366; 96367; J3475; J1200

== ENCOUNTER 2018-01-26 08:20 | Outpatient (CLI) | payer MEDICARE, OTHER ==
[~2018-01-26 08:20] MED LIST changes: -DIPHENHYDRAMINE HCL 50 MG in NORMAL SALINE 50 ML IV PRN
[2018-01-26 08:41] VITALS: BP 138/64
== END 2018-01-26 14:32 | disposition home or self-care (01) ==
LOC: II 08:20 → 5TH 08:21 → II 14:32
PROVIDERS: ATTEND Internal Medicine
PROC: 3E043GC Introduction of Other Therapeutic Substance into Central Vein, Percutaneous Approach (ICD-10-PCS; principal; 2018-01-26)
DX: E83.42 Hypomagnesemia (principal)
CPT/HCPCS: 96367; J3475; J1200; 96365; 96366

== ENCOUNTER 2018-02-02 08:30 | Outpatient (CLI) | payer MEDICARE, OTHER ==
[2018-02-02 08:55] VITALS: BP 99/77
== END 2018-02-02 14:22 | disposition home or self-care (01) ==
LOC: II 08:30 → 5TH 08:32 → II 14:22
PROVIDERS: ATTEND Internal Medicine
PROC: 3E043GC Introduction of Other Therapeutic Substance into Central Vein, Percutaneous Approach (ICD-10-PCS; principal; 2018-02-02)
DX: E83.42 Hypomagnesemia (principal)
CPT/HCPCS: 96367; J3475; J1200; 96365; 96366

== ENCOUNTER 2018-02-04 08:13 | Outpatient (CLI) | payer MEDICARE, OTHER ==
[~2018-02-04 08:13] MED LIST changes: -DIPHENHYDRAMINE HCL 25 MG in NORMAL SALINE 50 ML IV PRN; -MAGNESIUM SULFATE 4 GM/D5W 100 ML IV PRN; +NORMAL SALINE IV PRN; +POTASSIUM CHLORIDE IV PRN
[2018-02-04 09:14] VITALS: BP 105/65
[2018-02-04 09:17] LABS: ALANINE AMINOTRANSFERASE 34 U/L (9-52); ALBUMIN 4.3 g/dL (3.5-5.0); ALKALINE PHOSPHATASE 104 U/L (38-126); ANION GAP 13 (5-19); ASPARTATE AMINO TRANSFERASE 37 U/L (14-36); BILIRUBIN,DIRECT 0.2 mg/dL (0.0-0.4); BILIRUBIN,TOTAL 0.6 mg/dL (0.2-1.3); BLOOD UREA NITROGEN 15 mg/dL (7-20); CALCIUM 9.1 mg/dL (8.4-10.2); CARBON DIOXIDE 25 mmol/L (22-30); CHLORIDE 105 mmol/L (98-107); GLUCOSE 117 mg/dL (75-110); POTASSIUM 3.6 mmol/L (3.6-5.0); SODIUM 143.4 mmol/L (137-145); TOTAL PROTEIN 7.3 g/dL (6.3-8.2)
== END 2018-02-04 13:34 | disposition home or self-care (01) ==
LOC: II 08:13 → 5TH 08:13 → II 13:34
PROVIDERS: ATTEND Internal Medicine
PROC: 3E0437Z Introduction of Electrolytic and Water Balance Substance into Central Vein, Percutaneous Approach (ICD-10-PCS; principal; 2018-02-04)
DX: E87.6 Hypokalemia (principal)
CPT/HCPCS: 36415; 83735; 80053; 96367; J3480; J7030; 96360; 96361

== ENCOUNTER 2018-02-09 08:16 | Outpatient (CLI) | payer MEDICARE, OTHER ==
[~2018-02-09 08:16] MED LIST changes: +DIPHENHYDRAMINE HCL 25 MG in NORMAL SALINE 50 ML IV PRN; +DIPHENHYDRAMINE HCL 50 MG in NORMAL SALINE 50 ML IV PRN; +MAGNESIUM SULFATE 4 GM/D5W 100 ML IV PRN; -NORMAL SALINE IV PRN; -POTASSIUM CHLORIDE IV PRN
[2018-02-09 09:15] VITALS: BP 113/48
== END 2018-02-09 13:42 | disposition home or self-care (01) ==
LOC: II 08:16 → 5TH 08:20 → II 13:42
PROVIDERS: ATTEND Internal Medicine
PROC: 3E043GC Introduction of Other Therapeutic Substance into Central Vein, Percutaneous Approach (ICD-10-PCS; principal; 2018-02-09)
DX: E83.42 Hypomagnesemia (principal)
CPT/HCPCS: 96365; 96366; 96367; 96374; J3475; J1200

== ENCOUNTER 2018-02-16 08:20 | Outpatient (CLI) | payer MEDICARE, OTHER ==
[~2018-02-16 08:20] MED LIST changes: -DIPHENHYDRAMINE HCL 50 MG in NORMAL SALINE 50 ML IV PRN
[2018-02-16 09:27] VITALS: BP 126/70
== END 2018-02-16 14:34 | disposition home or self-care (01) ==
LOC: II 08:20 → 5TH 08:20 → II 14:34
PROVIDERS: ATTEND Internal Medicine
PROC: 3E043GC Introduction of Other Therapeutic Substance into Central Vein, Percutaneous Approach (ICD-10-PCS; principal; 2018-02-16)
DX: E83.42 Hypomagnesemia (principal)
CPT/HCPCS: 96365; 96366; 96367; 96375; J3475; J1200

== ENCOUNTER → 2018-02-17 | Outpatient (CLI) | payer MEDICARE, OTHER ==
--- NOTE | 2018-02-17 09:32 | RADIOLOGY REPORT (SQ) ---
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 TECHNIQUE: Sagittal and Axial imaging includes T1, T1 post gadolinium, T2, STIR and gradient echo se quences. Coronal T2/HASTE imaging. CONTRAST TYPE AND DOSE: 15 mL Dotarem. RENAL FUNCTION: GFR > 60. LIMITATIONS: None. FINDINGS: VISUALIZED UPPER ABDOMEN: Limited evaluation. No acute or suspicious findings suggested. SEGMENTATION: No transitional anatomy. The lowest well-developed disc space is labeled L5-S1. ALIGNMENT: Grade 1 spondylolisthesis L1- 2 and L2-3. VERTEBRAE: Intact. No fractures. BONE MARROW: Normal. No marrow replacement or reactive changes. DISC SIGNAL: Desiccation multiple levels. POSTERIOR ELEMENTS: Generally intact. No pars defect evident. HARDWARE: None in the spine. CORD AND CONUS: Normal in size and signal intensity. Conus at the appropriate level. SOFT TISSUES: No aortic aneurysm seen. No bulky retroperitoneal adenopathy or mass. No paraspinal mas s or fluid. L1-L2: Minimal narrowing of the spinal canal due to disc bulge. L2-L3: Minimal narrowing of the spinal canal due to disc bulge. L3-L4: Mild spinal stenosis due to disc bulge and facet arthropathy. L4-L5: Minimal spinal stenosis due to disc bulge and facet arthropathy. L5-S1: Disc bulge and facet arthropathy. No significant stenosis. LOWER THORACIC: Incompletely imaged. No stenosis seen. SACRUM: Visualized upper sacrum intact. ENHANCEMENT: No abnormal enhancement. OTHER: No other significant findings. IMPRESSION: Mild degenerative changes. No evidence of metastatic disease. TECHNICAL DOCUMENTATION: JOB ID: [id number]- All Rights Reserved Reading location - IP/workstation name: [email or web address]
== END ==
LOC: RAD 07:14
PROVIDERS: ATTEND Internal Medicine
DX: C20 Malignant neoplasm of rectum (principal)
CPT/HCPCS: 72158; A9576

== ENCOUNTER 2018-02-23 08:28 | Outpatient (CLI) | payer MEDICARE, OTHER ==
[2018-02-23 09:13] VITALS: BP 121/49
== END 2018-02-23 14:15 | disposition home or self-care (01) ==
LOC: II 08:28 → 5TH 08:29 → II 14:15
PROVIDERS: ATTEND Internal Medicine
PROC: 3E043GC Introduction of Other Therapeutic Substance into Central Vein, Percutaneous Approach (ICD-10-PCS; principal; 2018-02-23)
DX: E83.42 Hypomagnesemia (principal)
CPT/HCPCS: 96367; J3475; J1200; 96365; 96366

== ENCOUNTER 2018-03-02 08:32 | Outpatient (CLI) | payer MEDICARE, OTHER | END 2018-03-02 14:25 | disposition home or self-care (01) | LOC: II 08:32 → 5TH 08:33 → II 14:25 | PROVIDERS: ATTEND Internal Medicine | PROC: 3E033GC Introduction of Other Therapeutic Substance into Peripheral Vein, Percutaneous Approach (ICD-10-PCS; principal; 2018-03-02) | DX: E83.42 Hypomagnesemia (principal) | CPT/HCPCS: 96367; J3475; J1200; 96365; 96366 ==

== ENCOUNTER 2018-03-09 07:55 | Outpatient (CLI) | payer MEDICARE, OTHER ==
[~2018-03-09 07:55] MED LIST changes: +NORMAL SALINE IV PRN; +POTASSIUM CHLORIDE IV PRN
[2018-03-09 08:34] VITALS: BP 130/72
[2018-03-09 08:54] LABS: ALANINE AMINOTRANSFERASE 31 U/L (9-52); ALBUMIN 4.3 g/dL (3.5-5.0); ALKALINE PHOSPHATASE 102 U/L (38-126); ANION GAP 10 (5-19); ASPARTATE AMINO TRANSFERASE 39 U/L (14-36); BILIRUBIN,DIRECT 0.2 mg/dL (0.0-0.4); BILIRUBIN,TOTAL 0.6 mg/dL (0.2-1.3); BLOOD UREA NITROGEN 17 mg/dL (7-20); CALCIUM 8.8 mg/dL (8.4-10.2); CARBON DIOXIDE 29 mmol/L (22-30); CHLORIDE 103 mmol/L (98-107); GLUCOSE 122 mg/dL (75-110); SODIUM 141.7 mmol/L (137-145); TOTAL PROTEIN 7.2 g/dL (6.3-8.2)
[2018-03-09 09:03] LABS: POTASSIUM 2.8 mmol/L (3.6-5.0)
== END 2018-03-09 15:59 | disposition home or self-care (01) ==
LOC: II 07:55 → 5TH 07:59 → II 15:59
PROVIDERS: ATTEND Internal Medicine
PROC: 3E043GC Introduction of Other Therapeutic Substance into Central Vein, Percutaneous Approach (ICD-10-PCS; principal; 2018-03-09)
DX: E83.42 Hypomagnesemia (principal); E87.6 Hypokalemia
CPT/HCPCS: 36415; 80053; 96365; 96366; 96367; J3475; J1200; J3480; J7040

== ENCOUNTER 2018-03-16 08:19 | Outpatient (CLI) | payer MEDICARE, OTHER ==
[~2018-03-16 08:19] MED LIST changes: -NORMAL SALINE IV PRN; -POTASSIUM CHLORIDE IV PRN
[2018-03-16 08:42] VITALS: BP 124/65
== END 2018-03-16 15:00 | disposition home or self-care (01) ==
LOC: II 08:19 → 5TH 08:23 → II 15:00
PROVIDERS: ATTEND Internal Medicine
PROC: 3E043GC Introduction of Other Therapeutic Substance into Central Vein, Percutaneous Approach (ICD-10-PCS; principal; 2018-03-16)
DX: E83.42 Hypomagnesemia (principal); E87.6 Hypokalemia
CPT/HCPCS: 96367; J3475; J1200; 96365; 96366

== ENCOUNTER 2018-03-23 08:15 | Outpatient (CLI) | payer MEDICARE, OTHER ==
[2018-03-23 08:51] VITALS: BP 129/62
== END 2018-03-23 13:54 | disposition home or self-care (01) ==
LOC: II 08:15 → 5TH 08:16 → II 13:54
PROVIDERS: ATTEND Internal Medicine
PROC: 3E043GC Introduction of Other Therapeutic Substance into Central Vein, Percutaneous Approach (ICD-10-PCS; principal; 2018-03-23)
DX: E83.42 Hypomagnesemia (principal)
CPT/HCPCS: 96367; J3475; J1200; 96365; 96366

== ENCOUNTER 2018-03-30 08:26 | Outpatient (CLI) | payer MEDICARE, OTHER ==
[2018-03-30 08:54] VITALS: BP 129/77
== END 2018-03-30 14:07 | disposition home or self-care (01) ==
LOC: II 08:26 → 5TH 08:33 → II 14:07
PROVIDERS: ATTEND Internal Medicine
PROC: 3E043GC Introduction of Other Therapeutic Substance into Central Vein, Percutaneous Approach (ICD-10-PCS; principal; 2018-03-30)
DX: E83.42 Hypomagnesemia (principal)
CPT/HCPCS: 96367; J3475; J1200; 96365; 96366

== ENCOUNTER 2018-04-06 08:11 | Outpatient (CLI) | payer MEDICARE, OTHER ==
[2018-04-06 08:44] VITALS: BP 131/65
== END 2018-04-06 14:32 | disposition home or self-care (01) ==
LOC: II 08:11 → 5TH 08:13 → II 14:32
PROVIDERS: ATTEND Internal Medicine
PROC: 3E043GC Introduction of Other Therapeutic Substance into Central Vein, Percutaneous Approach (ICD-10-PCS; principal; 2018-04-06)
DX: E83.42 Hypomagnesemia (principal)
CPT/HCPCS: 96367; J3475; J1200; 96365; 96366

== ENCOUNTER 2018-04-13 08:19 | Outpatient (CLI) | payer MEDICARE, OTHER ==
[2018-04-13 09:35] VITALS: BP 117/68
== END 2018-04-13 14:04 | disposition home or self-care (01) ==
LOC: II 08:19 → 5TH 08:25 → II 14:04
PROVIDERS: ATTEND Internal Medicine
PROC: 3E033GC Introduction of Other Therapeutic Substance into Peripheral Vein, Percutaneous Approach (ICD-10-PCS; principal; 2018-04-13)
DX: E83.42 Hypomagnesemia (principal)
CPT/HCPCS: 96365; 96366; 96367; J3475; J1200

== ENCOUNTER 2018-04-20 08:19 | Outpatient (CLI) | payer MEDICARE, OTHER ==
[~2018-04-20 08:19] MED LIST changes: +DIPHENHYDRAMINE HCL IV PRN; +NORMAL SALINE IV PRN
[2018-04-20 09:05] VITALS: BP 120/60
== END 2018-04-20 13:48 | disposition home or self-care (01) ==
LOC: II 08:19 → 5TH 08:21 → II 13:48
PROVIDERS: ATTEND Internal Medicine
PROC: 3E043GC Introduction of Other Therapeutic Substance into Central Vein, Percutaneous Approach (ICD-10-PCS; principal; 2018-04-20)
DX: E83.42 Hypomagnesemia (principal)
CPT/HCPCS: 96365; 96366; J3475; J1200; 96367; J7050

== ENCOUNTER 2018-04-27 08:19 | Outpatient (CLI) | payer MEDICARE, OTHER ==
[~2018-04-27 08:19] MED LIST changes: -DIPHENHYDRAMINE HCL IV PRN; -NORMAL SALINE IV PRN
[2018-04-27 08:33] VITALS: BP 123/66
== END 2018-04-27 14:49 | disposition home or self-care (01) ==
LOC: 5TH 08:19 → II 08:19
PROVIDERS: ATTEND Internal Medicine
PROC: 3E043GC Introduction of Other Therapeutic Substance into Central Vein, Percutaneous Approach (ICD-10-PCS; principal; 2018-04-27)
DX: E83.42 Hypomagnesemia (principal)
CPT/HCPCS: 96367; J3475; J1200; 96365; 96366

== ENCOUNTER 2018-05-04 08:23 | Outpatient (CLI) | payer MEDICARE, OTHER ==
[2018-05-04 09:11] VITALS: BP 132/74
== END 2018-05-04 14:11 | disposition home or self-care (01) ==
LOC: II 08:23 → 5TH 08:31 → II 14:11
PROVIDERS: ATTEND Internal Medicine
PROC: 3E043GC Introduction of Other Therapeutic Substance into Central Vein, Percutaneous Approach (ICD-10-PCS; principal; 2018-05-04)
DX: E83.42 Hypomagnesemia (principal)
CPT/HCPCS: 96365; 96366; 96374; J3475; J1200; 96367

== ENCOUNTER 2018-05-11 08:21 | Outpatient (CLI) | payer MEDICARE, OTHER ==
[2018-05-11 10:13] VITALS: BP 130/60
== END 2018-05-11 14:45 | disposition home or self-care (01) ==
LOC: II 08:21 → 5TH 08:45 → II 14:45
PROVIDERS: ATTEND Internal Medicine
PROC: 3E033GC Introduction of Other Therapeutic Substance into Peripheral Vein, Percutaneous Approach (ICD-10-PCS; principal; 2018-05-11)
DX: E83.42 Hypomagnesemia (principal)
CPT/HCPCS: 96365; 96367; J3475; J1200; 96366

== ENCOUNTER 2018-05-18 08:28 | Outpatient (CLI) | payer MEDICARE, OTHER ==
[2018-05-18 09:39] VITALS: BP 138/78
== END 2018-05-18 14:14 | disposition home or self-care (01) ==
LOC: II 08:28 → 5TH 12:33 → II 14:14
PROVIDERS: ATTEND Internal Medicine
PROC: 3E043GC Introduction of Other Therapeutic Substance into Central Vein, Percutaneous Approach (ICD-10-PCS; principal; 2018-05-18)
DX: E83.42 Hypomagnesemia (principal)
CPT/HCPCS: 96365; 96366; 96375; 96376; 96360; J3475; J1200; 96367

== ENCOUNTER 2018-05-25 08:28 | Outpatient (CLI) | payer MEDICARE, OTHER ==
[2018-05-25 09:09] VITALS: BP 125/73
== END 2018-05-25 14:10 | disposition home or self-care (01) ==
LOC: II 08:28 → 5TH 08:34 → II 14:10
PROVIDERS: ATTEND Internal Medicine
PROC: 3E043GC Introduction of Other Therapeutic Substance into Central Vein, Percutaneous Approach (ICD-10-PCS; principal; 2018-05-25)
DX: E83.42 Hypomagnesemia (principal)
CPT/HCPCS: 96365; 96367; J3475; J1200; 96366

== ENCOUNTER 2018-06-01 08:29 | Outpatient (CLI) | payer MEDICARE, OTHER ==
[~2018-06-01 08:29] MED LIST changes: +DIPHENHYDRAMINE HCL 50 MG in NORMAL SALINE 50 ML IV PRN
[2018-06-01 14:07] VITALS: BP 137/61
== END 2018-06-01 14:11 | disposition home or self-care (01) ==
LOC: II 08:29 → 5TH 08:52 → II 14:11
PROVIDERS: ATTEND Internal Medicine
PROC: 3E043GC Introduction of Other Therapeutic Substance into Central Vein, Percutaneous Approach (ICD-10-PCS; principal; 2018-06-01)
DX: E83.42 Hypomagnesemia (principal)
CPT/HCPCS: 96365; 96366; J3475; J1200; 96367

== ENCOUNTER 2018-06-08 08:20 | Outpatient (CLI) | payer MEDICARE, OTHER ==
[~2018-06-08 08:20] MED LIST changes: -DIPHENHYDRAMINE HCL 50 MG in NORMAL SALINE 50 ML IV PRN
[2018-06-08 08:53] VITALS: BP 140/76
== END 2018-06-08 15:24 | disposition home or self-care (01) ==
LOC: II 08:20 → 5TH 08:25 → II 15:24
PROVIDERS: ATTEND Internal Medicine
PROC: 3E043GC Introduction of Other Therapeutic Substance into Central Vein, Percutaneous Approach (ICD-10-PCS; principal; 2018-06-08)
DX: E83.42 Hypomagnesemia (principal)
CPT/HCPCS: 96365; 96367; J3475; J1200; 96366

== ENCOUNTER 2018-06-15 08:28 | Outpatient (CLI) | payer MEDICARE, OTHER ==
[~2018-06-15 08:28] MED LIST changes: +DIPHENHYDRAMINE HCL 50 MG in NORMAL SALINE 50 ML IV PRN
[2018-06-15 09:03] VITALS: BP 144/69
== END 2018-06-15 14:10 | disposition home or self-care (01) ==
LOC: II 08:28 → 5TH 08:30 → II 14:10
PROVIDERS: ATTEND Internal Medicine
PROC: 3E043GC Introduction of Other Therapeutic Substance into Central Vein, Percutaneous Approach (ICD-10-PCS; principal; 2018-06-15)
DX: E83.42 Hypomagnesemia (principal)
CPT/HCPCS: 96367; J3475; J1200; 96365; 96366

== ENCOUNTER → 2018-06-16 | Outpatient (CLI) | payer MEDICARE, OTHER ==
--- NOTE | 2018-06-16 09:51 | WOMENS IMAGING REPORT ---
EXAM DESCRIPTION: 3D SCREENING MAMMO BILAT COMPLETED DATE/TIME: 06/16/2018 8:37 am REASON FOR STUDY: Z12.31 ROUTINE 3D BILATERAL SCREENING Z12.31 ENCNTR SCREEN MAMMOGRAM FOR MALIGNAN T NEOPLASM OF ELLIOT COMPARISON: 2018 TECHNIQUE: Standard craniocaudal and mediolateral oblique views of each breast recorded using digita l acquisition and breast tomosynthesis. LIMITATIONS: Right side port. FINDINGS: Findings present which are benign by mammographic criteria. No suspicious masses, calcific ations or architectural distortion. Pertinent benign findings: Breast reduction. Read with the assistance of CAD. .[facility] - R2 Cenova Version 1.3 .[facility] Imaging - R2 Cenova Version 2.1 .[facility] - R2 Cenova Version 2.4 .[facility] [place] Cenova Version 2.4 .[facility] - R2 [employer] Machine Operator Version 9.2 Benign mammographic findings may include one or more of the following: Smooth masses, popcorn/rim/coa rse calcifications, asymmetries, post-procedure changes, and lesions with long-standing stability. IMPRESSION: BENIGN MAMMOGRAPHIC FINDINGS. BIRADS 2 BREAST DENSITY: b. There are scattered areas of fibroglandular density. BIRAD: 2 BENIGN FINDING(S) RECOMMENDATION: ROUTINE SCREENING COMMENT: The patient has been notified of the results by letter per MQSA requirements. Additional no tification policies are in place for contacting patient with suspicious or incomplete findings. Quality ID #225: The [employer] recommends an annual screening mammogram for women aged 40 years or over. This facility utilizes a reminder system to ensure that all patients receive reminder letters, and/or direct phone calls for appointments. This includes reminders for routine scr eening mammograms, diagnostic mammograms, or other Breast Imaging Interventions when appropriate. Th is patient will be placed in the appropriate reminder system. The [employer] (ACR) has developed recommendations for screening MRI of the breast s in certain patient populations, to be used in conjunction with mammography. Breast MRI surveillanc e may be appropriate for women with more than 20% lifetime risk of developing breast cancer as deter mined by genetic testing, significant family history of the disease, or history of mantle radiation f or Hodgkins Disease. ACR Practice Guidelines 2008. DBT Technology DBT is a type of tomographic mammography. With conventional mammography, overlapping breast tissue ma y make lesions difficult to detect, even with good compression. DBT uses an x-ray tube that rotates a round the breast, taking images at different angles. These images are then combined to create thin sl ices of the breast that the radiologist can view as a 3D reconstruction. The Hologic unit can perform full-field digital mammograms (2D imaging); or DBT (3D imaging); or both, in a combination mode that quickly performs both the mammogram and the tomosynthesis scan while the breast is still compressed. PQRS 6045F: Fluoroscopic imaging is not utilized for breast tomosynthesis. TECHNICAL DOCUMENTATION: FINDING NUMBER: (1) ASSESSMENT: (1) JOB ID: [id number] [employer]- All Rights Reserved Reading location - IP/workstation name: [email or web address]
== END ==
LOC: WI 08:17
PROVIDERS: ATTEND Internal Medicine
DX: Z12.31 Encounter for screening mammogram for malignant neoplasm of breast (principal)
CPT/HCPCS: 77063; 77067

== ENCOUNTER 2018-06-22 08:25 | Outpatient (CLI) | payer MEDICARE, OTHER ==
[~2018-06-22 08:25] MED LIST changes: -DIPHENHYDRAMINE HCL 50 MG in NORMAL SALINE 50 ML IV PRN
[2018-06-22 09:00] VITALS: BP 135/58
== END 2018-06-22 13:30 | disposition home or self-care (01) ==
LOC: II 08:25 → 5TH 08:35 → II 13:30
PROVIDERS: ATTEND Internal Medicine
PROC: 3E043GC Introduction of Other Therapeutic Substance into Central Vein, Percutaneous Approach (ICD-10-PCS; principal; 2018-06-22)
DX: E83.42 Hypomagnesemia (principal)
CPT/HCPCS: 96365; 96367; J3475; J1200; 96366

== ENCOUNTER 2018-07-06 08:24 | Outpatient (CLI) | payer MEDICARE, OTHER ==
[2018-07-06 08:45] VITALS: BP 131/70
== END 2018-07-06 13:47 | disposition home or self-care (01) ==
LOC: II 08:24 → 5TH 08:30 → II 13:47
PROVIDERS: ATTEND Internal Medicine
PROC: 3E033GC Introduction of Other Therapeutic Substance into Peripheral Vein, Percutaneous Approach (ICD-10-PCS; principal; 2018-07-06)
DX: E83.42 Hypomagnesemia (principal)
CPT/HCPCS: 96365; 96366; 96367; J3475; J1200

== ENCOUNTER 2018-07-13 08:19 | Outpatient (CLI) | payer MEDICARE, OTHER ==
[2018-07-13 09:04] VITALS: BP 125/73
== END 2018-07-13 14:04 | disposition home or self-care (01) ==
LOC: II 08:19 → 5TH 08:23 → II 14:04
PROVIDERS: ATTEND Internal Medicine
PROC: 3E043GC Introduction of Other Therapeutic Substance into Central Vein, Percutaneous Approach (ICD-10-PCS; principal; 2018-07-13)
DX: E83.42 Hypomagnesemia (principal)
CPT/HCPCS: 96365; 96366; J3475; J1200; 96367; J1642

== ENCOUNTER 2018-07-20 08:22 | Outpatient (CLI) | payer MEDICARE, OTHER ==
[2018-07-20 08:40] VITALS: BP 132/62
== END 2018-07-20 13:59 | disposition home or self-care (01) ==
LOC: II 08:22 → 5TH 08:24 → II 13:59
PROVIDERS: ATTEND Internal Medicine
PROC: 3E043GC Introduction of Other Therapeutic Substance into Central Vein, Percutaneous Approach (ICD-10-PCS; principal; 2018-07-20)
DX: E83.42 Hypomagnesemia (principal)
CPT/HCPCS: 96365; 96366; J3475; J1200; J1642; 96367

== ENCOUNTER → 2019-02-22 | Outpatient (CLI) | payer MEDICARE, OTHER ==
--- NOTE | 2019-02-22 09:59 | WOMENS IMAGING REPORT ---
EXAM DESCRIPTION: 3D DX MAMMO RIGHT UNILAT; U/S BREAST UNILAT LIMITED COMPLETED DATE/TIME: 02/22/2019 9:17 am; 02/22/2019 9:46 am REASON FOR STUDY: N63.0 UNSPECIFIED LUMP IN UNSPECIFIED BREAST; N63.0 RIGHT BREAST C20 MALIGNANT NE OPLASM OF RECTUM N63.0 UNSPECIFIED LUMP IN UNSPECIFIED BREAST COMPARISON: 2017. 06/16/2018. EXAM PARAMETERS: Standard craniocaudal and mediolateral oblique images of the breast recorded using digital acquisition and breast tomosynthesis. True lateral and exaggerated CC views. Read with the assistance of CAD. .[facility] - [employer] Version 9.2 LIMITATIONS: None. FINDINGS: BREAST LATERALITY: right MASSES: No suspicious masses. CALCIFICATIONS: No new or suspicious calcifications. ARCHITECTURAL DISTORTION: 12 o'clock, stable. ASYMMETRY: None noted. OTHER: No other significant findings. Ultrasound right breast 7- 8 o'clock demonstrates dense tissue. No solid or cystic mass. IMPRESSION: No evidence of malignancy. BREAST DENSITY: b. There are scattered areas of fibroglandular density. BIRAD: ASSESSMENT: 2 Benign findings. RECOMMENDATION: RECOMMENDED FOLLOW UP: Birads 1 or 2: No breast imaging finding to explain the patie nt's presenting complaint. Further intervention should be based on the degree of clinical suspicion. SPECIFIC INTERVENTION/IMAGING/CONSULTATION RECOMMENDED:No additional intervention/ imaging/consultati on needed at this time. COMMUNICATION:The imaging findings were not discussed with the patient. Her referring provider has be en notified of the findings. COMMENT: The patient has been notified of the results by letter per SA requirements. Additional no tification policies are in place for contacting patient with suspicious or incomplete findings. Quality ID #225: The [employer] [employer] recommends an annual screening mammogram for women aged 40 years or over. This facility utilizes a reminder system to ensure that all patients receive reminder letters, and/or direct phone calls for appointments. This includes reminders for routine scr eening mammograms, diagnostic mammograms, or other Breast Imaging Interventions when appropriate. Th is patient will be placed in the appropriate reminder system. TECHNICAL DOCUMENTATION: FINDING NUMBER: (1) ASSESSMENT: (1) JOB ID: [id number] [employer]- All Rights Reserved Reading location - IP/workstation name: [email or web address]
--- NOTE | 2019-02-22 09:59 | WOMENS IMAGING REPORT ---
EXAM DESCRIPTION: 3D DX MAMMO RIGHT UNILAT; U/S BREAST UNILAT LIMITED COMPLETED DATE/TIME: 02/22/2019 9:17 am; 02/22/2019 9:46 am REASON FOR STUDY: N63.0 UNSPECIFIED LUMP IN UNSPECIFIED BREAST; N63.0 RIGHT BREAST C20 MALIGNANT NE OPLASM OF RECTUM N63.0 UNSPECIFIED LUMP IN UNSPECIFIED BREAST COMPARISON: 2017. 06/16/2018. EXAM PARAMETERS: Standard craniocaudal and mediolateral oblique images of the breast recorded using digital acquisition and breast tomosynthesis. True lateral and exaggerated CC views. Read with the assistance of CAD. .[facility] - [employer] Assistant Version 9.2 LIMITATIONS: None. FINDINGS: BREAST LATERALITY: right MASSES: No suspicious masses. CALCIFICATIONS: No new or suspicious calcifications. ARCHITECTURAL DISTORTION: 12 o'clock, stable. ASYMMETRY: None noted. OTHER: No other significant findings. Ultrasound right breast 7- 8 o'clock demonstrates dense tissue. No solid or cystic mass. IMPRESSION: No evidence of malignancy. BREAST DENSITY: b. There are scattered areas of fibroglandular density. BIRAD: ASSESSMENT: 2 Benign findings. RECOMMENDATION: RECOMMENDED FOLLOW UP: Birads 1 or 2: No breast imaging finding to explain the patie nt's presenting complaint. Further intervention should be based on the degree of clinical suspicion. SPECIFIC INTERVENTION/IMAGING/CONSULTATION RECOMMENDED:No additional intervention/ imaging/consultati on needed at this time. COMMUNICATION:The imaging findings were not discussed with the patient. Her referring provider has be en notified of the findings. COMMENT: The patient has been notified of the results by letter per SA requirements. Additional no tification policies are in place for contacting patient with suspicious or incomplete findings. Quality ID #225: The [employer] recommends an annual screening mammogram for women aged 40 years or over. This facility utilizes a reminder system to ensure that all patients receive reminder letters, and/or direct phone calls for appointments. This includes reminders for routine scr eening mammograms, diagnostic mammograms, or other Breast Imaging Interventions when appropriate. Th is patient will be placed in the appropriate reminder system. TECHNICAL DOCUMENTATION: FINDING NUMBER: (1) ASSESSMENT: (1) JOB ID: [id number] [employer]- All Rights Reserved Reading location - IP/workstation name: [email or web address]
== END ==
LOC: WI 08:50
PROVIDERS: ATTEND Physician Assistant Medical
DX: R92.2 Inconclusive mammogram (principal); C20 Malignant neoplasm of rectum
CPT/HCPCS: 76642; 77065; G0279

== ENCOUNTER → 2019-08-09 | Outpatient (CLI) | payer MEDICARE, OTHER ==
--- NOTE | 2019-08-09 13:04 | WOMENS IMAGING REPORT ---
EXAM DESCRIPTION: 3D SCREENING MAMMO BILAT IMAGES COMPLETED DATE/TIME: 08/09/2019 12:11 pm REASON FOR STUDY: Z12.31 SCREENING MAMMO Z12.31 ENCNTR SCREEN MAMMOGRAM FOR MALIGNANT NEOPLASM OF B RE COMPARISON: 2017, 2018 EXAM PARAMETERS: Standard craniocaudal and mediolateral oblique views of each breast recorded using digital acquisition and breast tomosynthesis. Read with the assistance of CAD. .[facility] - [employer] Version 9.2 LIMITATIONS: None. FINDINGS: Findings present which are benign by mammographic criteria. No suspicious masses, calcific ations or architectural distortion. Pertinent benign findings: Chronic nipple retraction on the right Benign mammographic findings may include one or more of the following: Smooth masses, popcorn/rim/coa rse calcifications, asymmetries, post-procedure changes, and lesions with long-standing stability. IMPRESSION: BENIGN MAMMOGRAPHIC FINDINGS. BIRADS 2 BREAST DENSITY: b. There are scattered areas of fibroglandular density. BIRAD: ASSESSMENT: 2 BENIGN FINDING(S) RECOMMENDATION: ROUTINE SCREENING COMMENT: The patient has been notified of the results by letter per SA requirements. Additional no tification policies are in place for contacting patient with suspicious or incomplete findings. Quality ID #225: The [employer] recommends an annual screening mammogram for women aged 40 years or over. This facility utilizes a reminder system to ensure that all patients receive reminder letters, and/or direct phone calls for appointments. This includes reminders for routine scr eening mammograms, diagnostic mammograms, or other Breast Imaging Interventions when appropriate. Th is patient will be placed in the appropriate reminder system. TECHNICAL DOCUMENTATION: FINDING NUMBER: (1) ASSESSMENT: (1) JOB ID: [id number] 2010 [employer]- All Rights Reserved Reading location - IP/workstation name: [email or web address]
== END ==
LOC: WI 11:20
PROVIDERS: ATTEND Internal Medicine
DX: Z12.31 Encounter for screening mammogram for malignant neoplasm of breast (principal)
CPT/HCPCS: 77063; 77067